=== PATIENT | female | born 1955 | race Caucasian/White ===

== ENCOUNTER → 2016-10-04 | Outpatient (CLI) | payer BC ==
[~2016-10-04] MED LIST: ATOR10TA60 PO; GADOBUTROL 10 MMOL/10 ML VIAL IV ONE; HYDR12.58 PO
--- NOTE | 2016-10-04 16:34 | KCIC ---
MRI of the lumbar spine without and with contrast 10/04/2016 CLINICAL HISTORY: Low back pain which radiates down the left leg. History of lumbar spinal canal stenosis. TECHNIQUE: Unenhanced T1-weighted and T2-weighted sagittal and axial and inversion recovery sagittal images of the lumbar spine were obtained. After the intravenous administration of 9 cc of Gadavist, enhanced T1-weighted sagittal and axial images of the lumbar spine were obtained. FINDINGS: Comparison is made to radiographs of the lumbar spine dated 07/12/2011. Minimal S-shaped curvature of the thoracolumbar spine is seen. Degenerative signal changes are seen involving all of the disks of the lumbar spine. Degenerative signal changes are seen within the marrow surrounding these discs. The conus medullaris is normal in morphology, position, and signal characteristics. No area of abnormal contrast enhancement is seen. At the L1-2 disc space there is a mild generalized disc bulge. Degenerative changes are seen involving the facet joints bilaterally. There is mild ligamentum flavum hypertrophy bilaterally. There is prominence of the posterior epidural fat. These findings when combined result in mild central spinal canal stenosis. No neural foraminal stenosis is seen. At the L2-3 disc space there is a moderate generalized disc bulge. Superimposed on the disc bulge is a central/left paracentral focal disc protrusion. This measures 4 mm in AP diameter. Degenerative changes are seen involving the facet joints bilaterally. There is moderate ligamentum flavum hypertrophy bilaterally. These findings when combined result in moderate to severe left greater than right central spinal canal stenosis. No neural foraminal stenosis is seen. At the L3-4 disc space there is a moderate generalized disc bulge. Degenerative changes are seen involving the facet joints bilaterally. There is moderate ligamentum flavum hypertrophy bilaterally. These findings when combined result in severe central spinal canal stenosis. Mild to moderate bilateral neural foraminal stenosis is seen. At the L4-5 disc space there is a mild generalized disc bulge. Degenerative changes are seen involving the facet joints bilaterally. There is moderate ligamentum flava hypertrophy bilaterally. These findings when combined result in mild to moderate central spinal canal stenosis. No neural foraminal stenosis is seen. At the L5-S1 disc space there is a minimal generalized disc bulge. Degenerative changes are seen involving the facet joints bilaterally. These findings when combined do not result in significant central spinal canal or neural foraminal stenosis. IMPRESSION: The changes of degenerative disc disease are seen involving the lumbar spine. These findings result in mild central spinal canal stenosis at L1-2, moderate to severe left greater than right central spinal canal stenosis at L2-3, severe central spinal canal stenosis at L3-4 and mild to moderate central spinal canal stenosis at L4-5. Mild to moderate bilateral neural foraminal stenosis is seen at L3-4. Electronically signed by: Prateek Garcia MD (10/04/2016 4:31 PM)
== END | disposition home or self-care (01) ==
LOC: KCIC MRI 14:41
PROVIDERS: ATTEND Family Medicine
DX: M51.36 Other intervertebral disc degeneration, lumbar region (principal); M48.06 Spinal stenosis, lumbar region
CPT/HCPCS: 72158; A9585

== ENCOUNTER → 2016-10-26 | Outpatient (CLI) | payer BC ==
[~2016-10-26] MED LIST changes: +BUPIVACAINE MPF 0.25% 10 ML VIAL. ONE; +CHOL10003 PO; +CYCL10TA2 PO; -GADOBUTROL 10 MMOL/10 ML VIAL IV ONE; +methylPREDNISolone ACETATE 40 MG/ML VIAL. ONE; +methylPREDNISolone ACETATE 80 MG/ML VIAL. ONE
== END | disposition home or self-care (01) ==
LOC: PNCL 12:12
PROVIDERS: ATTEND Anesthesiology
DX: M47.816 Spondylosis without myelopathy or radiculopathy, lumbar region (principal); M48.06 Spinal stenosis, lumbar region; Z88.0 Allergy status to penicillin
CPT/HCPCS: 64493; 64494; J1040; J3490; J1030

== ENCOUNTER → 2016-11-09 | Outpatient (CLI) | payer BC ==
[~2016-11-09] MED LIST changes: -BUPIVACAINE MPF 0.25% 10 ML VIAL. ONE; +IOHEXOL 180 MG/ML 10 ML VIAL. ONE
--- NOTE | 2016-11-10 01:06 | PAIN ---
DATE OF SERVICE: 11/09/2016 DIAGNOSES: Lumbar spondylosis with lumbar radiculopathy and lumbar spinal stenosis. HISTORY OF PRESENT ILLNESS: The patient is a 61-year-old female who returns for followup status post left-sided lumbar facet injections at L5-S1 and L4-L5. The patient reports no significant improvement in the pain after the injections. The patient had [address] injections [address] [facility] prior to this and reports very good improvement in pain after the first injection, but not as much after the second. Discussed the pain further. The patient reports it is radiating now into her lower leg, mostly in the lateral anterior aspect of the thigh and into the medial aspect of the lower leg as well as into the side of the lower leg. Rates it as an 8 on a scale of 10 at all times. The patient reports it is aching, sharp, tingling, cramping, on and off in intensity but always present. The patient reports no new motor or sensory deficits, but it has been waking her from sleep at night. She sleeps about 4 hours, she has to reposition, take pain medication, get out of bed and change positions to get the pain reduced. The patient reports no new motor or sensory deficits, no new bowel or bladder incontinence or other complaints. PHYSICAL EXAMINATION: VITAL SIGNS: Today, the patient's blood pressure is 152/82, pulse 94, respirations are 18, temperature 97.5 degrees Fahrenheit, height is 5 feet 3 inches, weight is 200 pounds. GENERAL: The patient is awake, alert, oriented, appropriate, very pleasant demeanor. HEENT: Exam shows normocephalic and atraumatic. Extraocular movements are intact, symmetrical. Oral cavity shows mucous membranes are moist and pink. Dentition is intact. NECK: Shows anterior throat supple. CHEST: Shows normal on inspection. Breath sounds are clear to auscultation bilaterally. HEART: Shows S1 and S2 clear. No murmurs auscultated. ABDOMEN: Obese, soft, nontender, nondistended. No palpable organomegaly noted. No rebound or guarding demonstrated. BACK: Shows spine grossly in the midline. Lumbar paraspinous muscle shows symmetrical; with palpation, it shows moderate tenderness throughout the upper, middle and lower distribution only diffusely and only to a moderate extent. No radiation. The patient has good rotational motion of the lumbar spine, both laterally as well as extension and flexion. EXTREMITIES: Lower extremities show deep tendon reflexes at 1+/4 in the patellar and tendo calcaneus tendons are equal. Motor exam is strong with dorsiflexion, extension, quadriceps and hamstring flexion and 5/5 at the ankles and 4/5 with quadriceps and hamstring flexion, but equal and symmetrical. Peripheral pulses are 1+ in the posterior tibial. Options were discussed with the patient. The patient's old chart was reviewed as her current medication regimen and updated. Current review of systems updated today as well. We will proceed with a lumbar epidural steroid injection, today is the third total in her series, with fluoroscopic guidance. Risks were again discussed including but not limited to bleeding, infection, possibility of epidural hematoma, subsequent neurologic compromise, dural puncture, headaches, spinal cord and/or nerve damage, side effects of steroid medication and poor results regarding pain control. The patient understands and wishes to proceed. The patient will return to the clinic in approximately 2 weeks for followup. She was counseled as to return appointment, activity level and side effects to be aware of. DIAGNOSES: Lumbar radiculopathy with spinal stenosis and lumbar spondylosis. PROCEDURES: Lumbar epidural steroid injection in translaminar approach at the L4-L5 level using C-arm fluoroscopic guidance under sterile prep and drape using local anesthetic. MEDICATIONS INJECTED: Total of 120 mg of Depo-Medrol plus a total of 10 mL of preservative-free normal saline and 2 mL of Isovue for contrast. CONDITION AT DISCHARGE: Stable. The patient tolerated the procedure well, had no complications. REN ONEILL MD DR: LILO/jennifer JOB#: [id number] / [id number]
== END | disposition home or self-care (01) ==
LOC: PNCL 13:27
PROVIDERS: ATTEND Anesthesiology
DX: M47.26 Other spondylosis with radiculopathy, lumbar region (principal); M48.06 Spinal stenosis, lumbar region; Z88.0 Allergy status to penicillin
CPT/HCPCS: 62323; J1030; J1040

== ENCOUNTER → 2016-11-16 | Outpatient (CLI) | payer BC ==
[~2016-11-16] MED LIST changes: -IOHEXOL 180 MG/ML 10 ML VIAL. ONE; -methylPREDNISolone ACETATE 40 MG/ML VIAL. ONE; -methylPREDNISolone ACETATE 80 MG/ML VIAL. ONE
--- NOTE | 2016-11-16 08:21 | RAD ---
Indication chronic pain. AP and frog leg views of the left hip were obtained. Bony mineralization appears normal. An acute finding is not seen. Significant degenerative changes are not apparent on plain films. IMPRESSION: No acute or significant finding seen involving the left hip on plain films
== END | disposition home or self-care (01) ==
LOC: RAD 07:30
PROVIDERS: ATTEND Anesthesiology
DX: M25.552 Pain in left hip (principal)
CPT/HCPCS: 73502

== ENCOUNTER → 2016-11-21 | Outpatient (CLI) | payer BC ==
--- NOTE | 2016-11-21 17:17 | PAIN ---
DATE OF SERVICE: 11/21/2016 DIAGNOSES: Lumbar spondylosis with lumbar radiculopathy, lumbar spinal stenosis. HISTORY OF PRESENT ILLNESS: The patient is a 61-year-old female who returns for followup status post lumbar epidural steroid injection. Also, lumbar facet injections, facet injections are not tremendously helpful, but the last lumbar epidural steroid injection she had on 11/19/2016 did very well. The patient reports she is 100% pain free at this time, she has some left hip pain as well and we had ____ with no acute findings. The patient was informed this as well. The patient reports the pain is completely gone, her low back and her hips and legs. She still feels unstable on her legs as they are somewhat weak when walking using a walker, but the patient reports her pain is 0 in all categories, at least average ____. Pain that was originally shooting and aching, burning, stabbing and is now gone The patient reports it took about a day and a half after, last injection, but the pain is completely resolved. She is 100% better sleep well at night, increased her activity with greater ease and comfort. I again except some weakness sensation her leg. She has had no motor loss. The patient reports no new motor or sensory deficits, no new bowel or bladder incontinence or other complaints. PHYSICAL EXAMINATION: VITAL SIGNS: The patient's blood pressure is 157/73, pulse 103, respirations 18, temperature is 98.0 degrees Fahrenheit. Height is 5 feet 3 inches, weight is 210 pounds. GENERAL: The patient is awake, alert, oriented, appropriate, very pleasant demeanor. HEENT: Head shows normocephalic, atraumatic. Extraocular movements intact, symmetrical. Oral cavity: Mucous membranes moist and pink. Dentition is intact. NECK: Shows anterior throat supple without palpable lymphadenopathy noted. Swallow reflex is symmetrical. CHEST: Shows normal on inspection. Breath sounds clear to auscultation bilaterally. HEART: Shows S1 and S2 clear. ABDOMEN: Soft, nontender, nondistended. No palpable organomegaly is noted. No rebound or guarding demonstrated. BACK: Shows spine grossly midline. Slight exaggeration of thoracic kyphosis and mild flattening of lumbar lordotic curvature. Lumbar paraspinous musculature is symmetrical on inspection with palpation shows only very minimal tenderness with deep palpation in the lower lumbar distribution without radiation. The patient has good rotational motion both laterally as well as extension and flexion without difficulty. EXTREMITIES: Lower extremities showed deep tendon reflexes 1+ in the patellar and tendo calcaneus tendons are equal. Motor exam is approximately 4 on a scale of 5 with quadriceps and hamstring flexion equal and ankle dorsiflexion, extension at 5/5 and stronger and equal bilaterally. Options were discussed with the patient and the patient's old chart was reviewed as her current medication regimen updated. Current review of systems updated today as well. We will hold on any further injections as she did very well with increased activity as tolerated. I encouraged her to try and strengthen her legs as well as her back before getting rid of her walker. She does feel more sleep with this, but eventually may be without this as well. We weaned to a cane as tolerated. The patient understands and agrees and will follow up on as needed basis at this time. REN ONEILL MD DR: LILO/jennifer JOB#: [id number] / [id number]
== END | disposition home or self-care (01) ==
LOC: PNCL 12:45
PROVIDERS: ATTEND Anesthesiology
DX: M47.896 Other spondylosis, lumbar region (principal); M54.16 Radiculopathy, lumbar region; M48.06 Spinal stenosis, lumbar region
CPT/HCPCS: 99212

== ENCOUNTER 2016-12-21 14:52 | Emergency (ER) | payer BC ==
[~2016-12-21] VITALS: Ht 160 cm; Wt 93.9 kg
--- NOTE | 2016-12-21 15:02 | PHYS DOC ---
Adult General Chief Complaint Chief Complaint: LOWER EXTREMITY SWELLING HPI HPI Patient is a 61 year old female presenting to the emergency department for evaluation of bilateral lower extremity swelling that started approximately 10- 14 days ago and over the past 2 days she says it has progressed and worsened. She says her left knee is always swollen but it is more swollen today and her lower extremity is swollen as well. Patient says that she feels mildly short of breath on exertion but she denies any chest pain dizziness unilateral weakness numbness or tingling. Her left leg is slightly more red than the right however it is not warm and she denies any fevers chills or other systemic symptoms. She takes hydrochlorothiazide and says that she spoke to her primary care provider and the prescribed her [place] for the pain and she has not been up moving around and she says she has too much low back pain which is chronic and not new or worse. She denies any trauma or overuse. Review of Systems Review of Systems Constitutional: Denies fever or chills [] Eyes: Denies change in visual acuity, redness, or eye pain [] HENT: Denies nasal congestion or sore throat [] Respiratory: Denies cough. + shortness of breath [] Cardiovascular: No additional information not addressed in HPI [] GI: Denies abdominal pain, nausea, vomiting, bloody stools or diarrhea [] : Denies dysuria or hematuria [] Musculoskeletal: Denies back pain or joint pain [] Integument: Denies rash or skin lesions [] Neurologic: Denies headache, focal weakness or sensory changes [] Current Medications Current Medications Current Medications Medications (Trade) Dose Ordered Sig/[facility] Start Time Stop Time Status Last Admin Dose Admin Furosemide (Lasix) 40 mg 1X ONCE 12/21/16 16:30 12/21/16 16:31 DC 12/21/16 16:40 40 MG Morphine Sulfate 5 mg 1X ONCE 12/21/16 16:30 12/21/16 16:31 DC 12/21/16 16:41 5 MG Allergies Allergies Allergies Coded Allergies Type Severity Reaction Last Updated Verified Penicillins Allergy Intermediate 10/04/16 Yes Physical Exam Physical Exam Constitutional: Well developed, well nourished, no acute distress, non-toxic appearance. [] HENT: Normocephalic, atraumatic, bilateral external ears normal, oropharynx moist, no oral exudates, nose normal. [] Eyes: PERRLA, EOMI, conjunctiva normal, no discharge. [] Neck: Normal range of motion, no tenderness, supple, no stridor. [] Cardiovascular:Heart rate regular rhythm, no murmur [] Lungs & Thorax: Bilateral breath sounds clear to auscultation [] Abdomen: Bowel sounds normal, soft, no tenderness, no masses, no pulsatile masses. [] Skin: Warm, dry, no erythema, no rash. [] Back: No tenderness, no CVA tenderness. [] Extremities: No tenderness, no cyanosis, no clubbing, ROM intact, 1-2+ edema on R and 2-3+ edema on L. left knee is swollen but there is no redness and she can move the joint without significant pain. Neurologic: Alert and oriented X 3, normal motor function, normal sensory function, no focal deficits noted. [] Current Patient Data Vital Signs Vital Signs Date Time Temp Pulse Resp B/P (MAP) Pulse Ox O2 Delivery O2 Flow Rate FiO2 12/21/16 15:12 98.4 109 24 175/74 (107) 93 Room Air 98.4 Lab Values Laboratory Tests Test 12/21/16 15:15 12/21/16 16:30 White Blood Count 8.3 x10^3/uL (4.0-11.0) Red Blood Count 4.12 x10^6/uL (3.50-5.40) Hemoglobin 12.7 g/dL (12.0-15.5) Hematocrit 37.5 % (36.0-47.0) Mean Corpuscular Volume 91 fL (79-100) Mean Corpuscular Hemoglobin 31 pg (25-35) Mean Corpuscular Hemoglobin Concent 34 g/dL (31-37) Red Cell Distribution Width 13.0 % (11.5-14.5) Platelet Count 236 x10^3/uL (140-400) Neutrophils (%) (Auto) 68 % (31-73) Lymphocytes (%) (Auto) 23 % (24-48) L Monocytes (%) (Auto) 7 % (0-9) Eosinophils (%) (Auto) 1 % (0-3) Basophils (%) (Auto) 1 % (0-3) Neutrophils # (Auto) 5.6 x10^3uL (1.8-7.7) Lymphocytes # (Auto) 1.9 x10^3/uL (1.0-4.8) Monocytes # (Auto) 0.6 x10^3/uL (0.0-1.1) Eosinophils # (Auto) 0.1 x10^3/uL (0.0-0.7) Basophils # (Auto) 0.1 x10^3/uL (0.0-0.2) Prothrombin Time 13.6 SEC (11.7-14.0) Prothrombin Time INR 1.1 (0.8-1.1) PTT 30 SEC (24-38) Sodium Level 140 mmol/L (136-145) Potassium Level 3.5 mmol/L (3.5-5.1) Chloride Level 101 mmol/L (98-107) Carbon Dioxide Level 30 mmol/L (21-32) Anion Gap 9 (6-14) Blood Urea Nitrogen 20 mg/dL (7-20) Creatinine 0.7 mg/dL (0.6-1.0) Estimated GFR (Cockcroft-Gault) 85.4 BUN/Creatinine Ratio 29 (6-20) H Glucose Level 127 mg/dL (70-99) H Calcium Level 9.5 mg/dL (8.5-10.1) Magnesium Level 2.0 mg/dL (1.8-2.4) Total Bilirubin 0.4 mg/dL (0.2-1.0) Aspartate Amino Transferase (AST) 38 U/L (15-37) H Alanine Aminotransferase (ALT) 50 U/L (14-59) Alkaline Phosphatase 78 U/L (46-116) Creatine Kinase 474 U/L (26-192) H Troponin I Quantitative < 0.017 ng/mL (0.000-0.055) YY-Lzb-S-Type Natriuretic Peptide 55 pg/mL (0-124) Total Protein 7.1 g/dL (6.4-8.2) Albumin 3.7 g/dL (3.4-5.0) Albumin/Globulin Ratio 1.1 (1.0-1.7) Urine Color Yellow Urine Clarity Clear Urine pH 5.0 Urine Specific [place] 1.015 Urine Protein Negative mg/dL (NEG-TRACE) Urine Glucose (UA) Negative mg/dL (NEG) Urine Ketones (Stick) Negative mg/dL (NEG) Urine Blood Negative (NEG) Urine Nitrite Negative (NEG) Urine Bilirubin Negative (NEG) Urine Urobilinogen Dipstick 0.2 mg/dL (0.2 mg/dL) Urine Leukocyte Esterase Negative (NEG) Urine RBC 0 /HPF (0-2) Urine WBC Occ /HPF (0-4) Urine Squamous Epithelial Cells Occ /LPF Urine Bacteria 0 /HPF (0-FEW) Laboratory Tests 12/21/16 15:15 Laboratory Tests 12/21/16 15:15 EKG EKG Sinus tachycardia at 107 beats per minutes with right axis deviation no obvious ST elevation or depression with normal t waves and one PVC noted Radiology/Procedures Radiology/Procedures EXAM: CHEST 1 VIEW History: Shortness of breath COMPARISON: None available. TECHNIQUE: Single portable radiograph of the chest FINDINGS: The cardiac silhouette is unremarkable. The lungs are clear bilaterally. The costophrenic sulci are clear and well demarcated. IMPRESSION: No radiographic evidence of an acute cardiopulmonary process. DICTATED and SIGNED BY: JADE WAY MD DATE: 12/21/16 1526 Examination: Ultrasound left lower extremity venous duplex History: History of left leg pain, swelling Comparison: None available Technique: Grayscale, color Doppler 2-D, spectral waveform analysis of the left lower extremity venous system are performed. Findings: The visualized common femoral vein, superficial femoral vein, popliteal vein, demonstrate normal compression and augmentation of flow. The visualized calf veins are patent. Impression: No evidence of deep venous thrombosis left lower extremity venous system. DICTATED and SIGNED BY: JADE WAY MD DATE: 12/21/16 1643 Course & Med Decision Making Course & Med Decision Making Patient with nonspecific lower extremity edema likely dependent edema as she has 2+ dorsalis pedis pulse bilaterally. We will check for DVT renal failure liver failure congestive heart failure and then reassess. Workup is completely negative for acute process including DVT renal failure and liver failure congestive heart failure. She has normal pulses so I doubt this is an arterial issue either. I spoke to Dr. Mendoza who is on-call for Dr. Jasso and she recommended outpatient treatment with leg elevation and compression stockings and a 5 day course of Lasix while awaiting to see Dr. Jasso. Patient does appear well with normal vital signs other than her baseline tachycardia which is present on all prior charts. Patient aware and agreeable with plan for discharge and verbalized understanding of the need for short-term follow-up in the strict ED return precautions discussed and clear worsening pain fevers shortness of breath or other general concerns. Dragon Disclaimer Dragon Disclaimer This electronic medical record was generated, in whole or in part, using a voice recognition dictation system. Departure Departure Impression: Primary Impression: Peripheral edema Disposition: HOME, SELF-CARE Condition: STABLE Referrals: JARET JASSO MD (PCP) Patient Instructions: Peripheral Edema Additional Instructions: MAKE SURE TO KEEP YOUR LEGS ELEVATED OFTEN POSSIBLE. TAKE YOUR MEDICATIONS PRESCRIBED IN ADDITION TO THE LASIX. THANK YOU! Scripts Furosemide (LASIX) 40 Mg Tablet 1 TAB PO DAILY, #5 TAB 0 Refills Prov: CARISA CLARK DO 12/21/16 CARISA CLARK DO Dec 21, 2016 15:02
[2016-12-21 15:25] LABS: BASO # 0.1 x10^3/uL (0.0-0.2); BASO % 1 % (0-3); EOS % 1 % (0-3); HEMATOCRIT 37.5 % (36.0-47.0); HEMOGLOBIN 12.7 g/dL (12.0-15.5); LYMPH # 1.9 x10^3/uL (1.0-4.8); LYMPH % 23 % (24-48); MEAN CORPUSCULAR HEMOGLOBIN 31 pg (25-35); MEAN CORPUSCULAR HGB CONC 34 g/dL (31-37); MEAN CORPUSCULAR VOLUME 91 fL (79-100); MONO % 7 % (0-9); NEUT % 68 % (31-73); PLATELET COUNT 236 x10^3/uL (140-400); RED BLOOD COUNT 4.12 x10^6/uL (3.50-5.40); WHITE BLOOD COUNT 8.3 x10^3/uL (4.0-11.0)
--- NOTE | 2016-12-21 15:29 | RAD ---
EXAM: CHEST 1 VIEW History: Shortness of breath COMPARISON: None available. TECHNIQUE: Single portable radiograph of the chest FINDINGS: The cardiac silhouette is unremarkable. The lungs are clear bilaterally. The costophrenic sulci are clear and well demarcated. IMPRESSION: No radiographic evidence of an acute cardiopulmonary process.
[2016-12-21 15:35] LABS: INR 1.1 (0.8-1.1); PROTHROMBIN TIME PATIENT 13.6 SEC (11.7-14.0)
[2016-12-21 15:37] LABS: CALCIUM 9.5 mg/dL (8.5-10.1); CREATININE 0.7 mg/dL (0.6-1.0); GFR 85.4; POTASSIUM 3.5 mmol/L (3.5-5.1)
[2016-12-21 15:43] LABS: ALBUMIN 3.7 g/dL (3.4-5.0); ALBUMIN/GLOBULIN RATIO 1.1 (1.0-1.7); TOTAL BILIRUBIN 0.4 mg/dL (0.2-1.0); TOTAL PROTEIN 7.1 g/dL (6.4-8.2)
[2016-12-21] MEDS ORDERED: ATOR20TA58 PO (15:53)
[2016-12-21] MEDS ORDERED: DICL75TA PO (15:59)
[2016-12-21] MEDS ORDERED: HYDR-2762 PO (16:00)
[2016-12-21] MEDS ORDERED: FUROSEMIDE 40 MG/4 ML VIAL. IVP ONE (16:30)
[2016-12-21] MEDS ORDERED: MORPHINE SULFATE 10 MG/ML VIAL. IV ONE (16:30)
[2016-12-21 16:40] LABS: BILIRUBIN,URINE NEGATIVE (NEG); GLUCOSE,URINE NEGATIVE (NEG); NITRITE,URINE NEGATIVE (NEG); PROTEIN,URINE NEGATIVE (NEG-TRACE); UROBILINOGEN,URINE 0.2 mg/dL (0.2 mg/dL)
--- NOTE | 2016-12-21 16:46 | RAD ---
Examination: Ultrasound left lower extremity venous duplex History: History of left leg pain, swelling Comparison: None available Technique: Grayscale, color Doppler 2-D, spectral waveform analysis of the left lower extremity venous system are performed. Findings: The visualized common femoral vein, superficial femoral vein, popliteal vein, demonstrate normal compression and augmentation of flow. The visualized calf veins are patent. Impression: No evidence of deep venous thrombosis left lower extremity venous system.
[2016-12-21 16:53] LABS: BACTERIA,URINE 0 /HPF (0-FEW); RBC,URINE 0 /HPF (0-2); SQUAMOUS EPITHELIAL CELL,UR OCC /LPF; WBC,URINE OCC /HPF (0-4)
[2016-12-21] MEDS ORDERED: FURO-68 PO (17:23)
[2016-12-21 17:45] VITALS: BP 176/74
--- NOTE | 2016-12-22 06:46 | EKG ---
[facility] [address] [place] [address] Test Date: 2016-12-21 Test Time: 15:24:32 Pat Name: NIVIA RUIZ Department: Room: Gender: F [employer]: : [id number] Requested By: CARISA CLARK Order Number: [id number] Reading MD: Sunny Holman Measurements Intervals [place] Rate: 107 P: 43 ME: 118 QRS: 142 QRSD: 86 T: 147 QT: 342 QTc: 462 Interpretive Statements SUSPECT SINUS TACHYCARDIA BASELINE ARTIFACT PVC CONSIDER REPEAT EKG Electronically Signed On 12-25-2016 11:08:51 CDT by Sunny Holman
== END 2016-12-21 17:46 | disposition home or self-care (01) ==
LOC: ER 14:52
DX: R60.0 Localized edema (principal); R06.02 Shortness of breath; G89.29 Other chronic pain; M54.5 Low back pain; Z88.0 Allergy status to penicillin
CPT/HCPCS: 36415; 71010; 80053; 81001; 82550; 83735; 83880; 84484; 85025; 85610; 85730; 93005; 93971; 96374; 96375; 99285; J1940; J2270

== ENCOUNTER 2017-01-15 07:20 | Inpatient (IN) | payer BC ==
--- NOTE | 2017-01-12 15:18 | HP ---
ADMIT DATE: 01/15/2017 This is Roger Montiel RN, dictating for Dr. Jah Hernandez. DATE OF SCHEDULED SURGERY: 01/15/2017 HISTORY OF PRESENT ILLNESS: The patient is a pleasant 61-year-old woman who is having difficulty with low back pain, and pain which radiates into her left leg. She stated she started having problems in 2006. She relates the pain has slowly worsened since then; about 3 years ago, became more severe. She stated last year she developed severe pain with standing in her left leg. She rates her pain at 5-6/10. She takes [place], diclofenac, and Flexeril. She has had epidural steroid injections, which she stated have helped during the past, but recently stopped working effectively. She feels as though there is weakness in her left leg. Recently she has been using a walker. When she leaves home, she uses a wheelchair. PAST MEDICAL HISTORY: Arthritis and hypertension. PAST SURGICAL HISTORY: Hysterectomy, ovarian cyst, hernia. FAMILY HISTORY: Hypertension. SOCIAL HISTORY: Works in the home. . Quit smoking 2 years ago. Does not drink alcohol. ALLERGIES: PENICILLIN AND LATEX. CURRENT MEDICATIONS: Ros[place], diclofenac, Flexeril, atorvastatin, hydrochlorothiazide, potassium, furosemide, vitamin D3. REVIEW OF SYSTEMS: A 12-point review of systems was obtained and is noncontributory except for that mentioned above. NEUROSURGERY EXAMINATION: GENERAL APPEARANCE: Alert, pleasant, in no acute distress. HEENT: Normocephalic, atraumatic. SKIN: Warm and dry. MUSCULOSKELETAL: Lumbar paraspinal muscle bulk is normal. Restricted range of motion of the lumbar spine. [id number] tenderness of lower lumbar spine with palpation. Normal range of motion of the lower extremities bilaterally. EXTREMITIES: No clubbing, cyanosis or edema. NEUROLOGIC: Alert and oriented x 3. Normal recent and remote memory. Strength 5/5 in bilateral lower extremities. Sensory was intact to light touch in bilateral lower extremities, except for decrease involving the anterior lateral left leg. Reflexes were trace and symmetric in the lower extremities bilaterally. Negative straight leg raising bilaterally. She uses a wheelchair. She does not feel strong enough to climb up onto the exam table, not trusting her left leg. IMAGING: Reviewed. I reviewed a lumbar MRI scan. On that study, there is severe stenosis present at L3-L4. There is a moderately severe stenosis at L2-L3. There is mild stenosis at L4-L5 and L1-L2. ASSESSMENT: Spinal stenosis, lumbar region. PLAN: She has stenosis involving principally L2-L3 and L3-L4. The problem is very severe at L3-L4. I recommended a left direct laminectomy at L2-L3 and L3-L4 for her lumbar spinal stenosis. I spoke to her about our surgery and the risks. She understands. She would like for me to proceed. We will make the arrangements. JAH HERNANDEZ MD DR: RL/jennifer JOB#: [id number] / [id number]
[~2017-01-15] VITALS: Ht 170.2 cm; Wt 93.9 kg
[2017-01-15] VITALS (9 sets, daily range): BP systolic 110–146; BP diastolic 54–67
[~2017-01-15 07:20] MED LIST changes: +ATOR20TA58 PO; +BACITRACIN 50,000 UNIT in IV NORMAL SALINE 1000ML BAG 1,000 ML IRR ONE; +BUPIVAC MPF-EPI 0.5%-1:200000 10 ML VIAL. ONE; +DICL75TA PO; +FURO-68 PO; +GELATIN SPONGE SIZE 100. ONE; +HYDR-2762 PO; +HYDROmorphone 2 MG/ML VIAL IV PRN; +IV RINGERS,LACTATED 1000ML 1,000 ML IV SCH; +KETOROLAC 60 MG/2 ML INJ FOR OR. ONE; +LIDOCAINE 1% PF 2 ML VIAL. ID PRN; +MORPHINE SULFATE 2 MG/ML DISP.SYRIN. IV PRN; +ONDANSETRON PF 4 MG/2 ML VIAL. IV PRN; +PROCHLORPERAZINE 10 MG/2 ML VIAL. IV PRN; +THROMBIN TOPICAL 20,000 UNIT SPRAY.SYRN KIT TP ONE; +fentaNYL PF VIAL 100 MCG/2 ML VIAL IV PRN
[2017-01-15] MEDS ORDERED: VANCOMYCIN 1GM IVPB FOR OMNI 250 ML IV PRN (08:00)
[2017-01-15] MEDS ORDERED: fentaNYL PF VIAL 100 MCG/2 ML VIAL ONE (08:12)
[2017-01-15] MEDS ORDERED: ONDANSETRON PF 4 MG/2 ML VIAL. ONE (08:12)
[2017-01-15] MEDS ORDERED: PROPOFOL 20 ML IV ONE (08:12)
[2017-01-15] MEDS ORDERED: LIDOCAINE 2% PF Vial for OR 5 ML VIAL. ONE (08:12)
[2017-01-15] MEDS ORDERED: DEXAMETHASONE SOD PHOS 20 MG/5 ML VIAL. ONE (08:12)
[2017-01-15] MEDS ORDERED: ePHEDrine PF IN SALINE 50 MG/5 ML DISP.SYRIN IV ONE (08:13)
[2017-01-15] MEDS ORDERED: PROPOFOL 50 ML IV ONE ×2 (08:13→09:49)
[2017-01-15] MEDS ORDERED: REMIFENTANIL 2 MG VIAL. IV ONE (08:13)
[2017-01-15] MEDS ORDERED: PHENYLEPHRINE in 0.9% NACL PF 1 MG/10 ML DISP.SYRIN. IV ONE (08:13)
[2017-01-15] MEDS ORDERED: ROCURONIUM 100 MG/10 ML VIAL. ONE (08:20)
[2017-01-15] MEDS ORDERED: GLYCOPYRROLATE 1 MG/5 ML VIAL. ONE (09:30)
[2017-01-15] MEDS ORDERED: NEOSTIGMINE 10 MG/10 ML VIAL. ONE (09:30)
[2017-01-15] MEDS ORDERED: DESFLURANE > 120 MINUTES IH ONE (10:40)
--- NOTE | 2017-01-15 12:11 | OP ---
DATE OF SURGERY: 01/15/2017 PREOPERATIVE DIAGNOSES: Lumbar spinal stenosis, L2-L3, L3-L4 with left lumbar radiculopathy. POSTOPERATIVE DIAGNOSIS: Lumbar spinal stenosis, L2-L3, L3-L4 with left lumbar radiculopathy. OPERATION PERFORMED: Left direct laminectomy, L2-L3, L3-L4. The operation was done with EMG monitoring, fluoroscopy, microscopic dissection. SURGEON: Jah Hernandez M.D. BUFFING WHEEL INSPECTOR: FLAKO Amaro assisted with the surgery. She assisted with the exposure, the decompression as well as closure. OPERATIVE INDICATIONS: The patient is a very pleasant 61-year-old who developed intractable back and left leg pain, which failed conservative measures. Her pain became very severe. On imaging studies, she was found to have the above-mentioned findings. I recommended lumbar microsurgery. I spoke with her about the surgery and the risks, the technique of the operation, she understood and she wished to go ahead. DESCRIPTION OF PROCEDURE: Following general endotracheal anesthesia, the patient was positioned prone on the Viraj frame. Her lumbar region was prepped and draped in the standard fashion. STEFFEN hose and AV impulse boots were applied for deep venous thrombosis prophylaxis. The microscope was draped. Fluoroscopy was draped and brought into field. Monitoring was established. Vancomycin 1 gram was given preoperatively. The patient did have PCN and latex allergies. Using fluoroscopic guidance, an incision was made extending from L2 to L4, dissected down through the skin and subcutaneous tissue and reflected the paraspinal muscles to the left and placed a [place] micro disc retractor, brought in the microscope and using the high speed air drill, beginning at L3-L4 I burred down a generous hemilaminotomy and then tilted the patient away and drilled across the midline with a high speed air drill. There was significant adipose tissue and the longest micro lumbar retractor was used, but I was able to obtain excellent exposure and drilling across the midline I then visualized markedly degenerated ligamentum flavum, which I then freed up from the surrounding tissues and peeled from medial to laterally and also trimmed some from the contralateral side. I worked laterally and I did also perform partial foraminotomy and fully decompressed the entire region, and the dura moved out laterally. I palpated the disc. It was bulging slightly, but very, very firm and no discectomy was warranted. I had an excellent decompression at this level. I then placed Gelfoam around the edge of the exposure where I irrigated copiously, moved up to L2-L3. Again, using fluoroscopic images, I drilled down a generous hemilaminotomy, again tilted the table away and drilled across the midline and again removed the very thickened ligamentum flavum from medial to lateral, and performed a partial foraminotomy. The stenosis at L2-L3 was not as severe as at L3-L4, but was significant. At this point, then the dura had moved back nicely. I had excellent hemostasis. I irrigated copiously. I was able to close the incision. I removed the retractor, obtained hemostasis in the muscle, irrigated again and closed the fascia with absorbable suture, again after assuring myself of excellent hemostasis, followed by the subcutaneous tissue, which was closed in layers followed by the skin with a 4-0 subcuticular stitch. The operation went very well and the patient was awakened uneventfully. I was quite pleased with the surgery. JAH HERNANDEZ MD DR: RL/jennifer JOB#: [id number] / [id number] JEANETTE
[2017-01-15] MEDS ORDERED: ZOLPIDEM 5 MG TABLET. PO PRN (12:15)
[2017-01-15] MEDS ORDERED: CALCIUM CARBONATE 500 MG TAB.CHEW PO PRN (12:15)
[2017-01-15] MEDS ORDERED: diphenhydrAMINE 50 MG/ML VIAL IV PRN (12:15)
[2017-01-15] MEDS ORDERED: ACETAMINOPHEN 325 MG TABLET. PO PRN (12:15)
[2017-01-15] MEDS ORDERED: MAGNESIUM HYDROXIDE 2,400 MG/30 ML ORAL.SUSP. PO PRN (12:15)
[2017-01-15] MEDS ORDERED: MAG HYDROX/ALUMINUM HYD/SIMETH 30 ML ORAL.SUSP PO PRN (12:15)
[2017-01-15] MEDS ORDERED: HYDROcodone/APAP 7.5/325MG 1 TAB TABLET PO PRN (12:15)
[2017-01-15] MEDS ORDERED: 0.9 % SODIUM CHLORIDE 10 ML DISP.SYRIN. IV PRN (12:15)
[2017-01-15] MEDS ORDERED: fentaNYL PF VIAL 100 MCG/2 ML VIAL IV PRN ×2 (12:15)
[2017-01-15] MEDS ORDERED: diphenhydrAMINE HCL 25 MG CAPSULE PO PRN (12:15)
[2017-01-15] MEDS: fentaNYL PF VIAL 100 MCG/2 ML VIAL IV PRN ×2 (12:19→12:27)
[2017-01-15] MEDS ORDERED: ALBUMIN HUMAN 5% 250 ML IV ONE (12:38)
[2017-01-15] MEDS ORDERED: ALBUMIN HUMAN 5% 500 ML IV ONE (12:45)
[2017-01-15] MEDS ORDERED: POTASSIUM CL 20MEQ D5-0.45NACL 1,000 ML IV SCH (14:00)
[2017-01-15] MEDS ORDERED: METHOCARBAMOL 750 MG TABLET PO SCH (14:00)
[2017-01-15] MEDS: HYDROcodone/APAP 7.5/325MG 1 TAB TABLET PO PRN (17:46)
[2017-01-15] MEDS: DICLOFENAC SODIUM 25 MG TABLET.DR PO SCH (21:51)
[2017-01-15] MEDS: DOCUSATE SODIUM 100 MG CAPSULE. PO SCH (21:51)
[2017-01-15] MEDS: CYCLOBENZAPRINE 10 MG TABLET. PO SCH (21:51)
[2017-01-15] MEDS: ATORVASTATIN CALCIUM 20 MG TABLET PO SCH (21:52)
[2017-01-16 02:31] VITALS: BP 112/47
[2017-01-16] MEDS: HYDROcodone/APAP 7.5/325MG 1 TAB TABLET PO PRN ×3 (04:16→20:39)
[2017-01-16 06:45] VITALS: BP 123/58
[2017-01-16] MEDS: hydroCHLOROthiazide 25 MG TABLET PO SCH (08:25)
[2017-01-16] MEDS: FUROSEMIDE 40 MG TABLET. PO SCH (08:25)
[2017-01-16] MEDS: DOCUSATE SODIUM 100 MG CAPSULE. PO SCH ×2 (08:25→20:39)
[2017-01-16] MEDS: CYCLOBENZAPRINE 10 MG TABLET. PO SCH (08:25)
[2017-01-16] MEDS: CHOLECALCIFEROL (VITAMIN D3) 1,000 UNIT TABLET PO SCH (08:25)
[2017-01-16] MEDS: DICLOFENAC SODIUM 25 MG TABLET.DR PO SCH ×2 (08:27→21:21)
--- NOTE | 2017-01-16 09:56 | PDOC ---
PROGRESS NOTES Subjective Subjective POD #1 up in chair some back and hip pain but left leg feels better ambulated with walker with PT Objective Objective Vital Signs Date Time Temp Pulse Resp B/P (MAP) Pulse Ox O2 Delivery O2 Flow Rate FiO2 01/16/17 07:48 Nasal Cannula 2.0 01/16/17 06:45 98.6 121 20 123/58 (79) 94 98.6 Physical Exam General: Alert, Oriented X3, Cooperative, No acute distress MUSCULOSKELETAL: Other (ARAYA) Neuro: Normal speech Psych/Mental Status: Mental status NL Skin: Other (dressing C,D,I, flat) Plan Plan of Care encouraged increased activity as tolerated continue PT OT consult consult Dr. Hall and Dr. Jasso Comment Review of Relevant I have reviewed the following items sophie (where applicable) has been applied. Medications Current Medications Ondansetron HCl (Zofran) 4 mg PRN Q6HRS PRN IV NAUSEA/VOMITING; Start 01/15/17 at 07:00; Stop 01/16/17 at 06:59; Status DC Fentanyl Citrate (Fentanyl 2ml Vial) 25 mcg PRN Q5MIN PRN IV MILD PAIN Last administered on 01/15/17 13:57; Start 01/15/17 at 07:00; Stop 01/16/17 at 06: 59; Status DC Fentanyl Citrate (Fentanyl 2ml Vial) 50 mcg PRN Q5MIN PRN IV MODERATE PAIN Last administered on 01/15/17 12:27; Start 01/15/17 at 07:00; Stop 01/16/17 at 06:59; Status DC Morphine Sulfate 1 mg PRN Q10MIN PRN IV SEVERE PAIN; Start 01/15/17 at 07:00; Stop 01/16/17 at 06:59; Status DC Ringer's Solution 1,000 ml @ 30 mls/hr Q24H IV Last administered on 01/15/17 08:04; Start 01/15/17 at 07:00; Stop 01/15/17 at 18:59; Status DC Lidocaine HCl (Xylocaine-Mpf 1% Vial) 2 ml PRN 1X PRN ID PRIOR TO IV START; Start 01/15/17 at 07:00; Stop 01/16/17 at 06:59; Status DC Hydromorphone HCl (Dilaudid) 0.5 mg PRN Q10MIN PRN IV SEV PAIN, Second choice; Start 01/15/17 at 07:00; Stop 01/16/17 at 06:59; Status DC Prochlorperazine Edisylate (Compazine) 5 mg PACU PRN PRN IV NAUSEA, MRX1; Start 01/15/17 at 07:00; Stop 01/16/17 at 06:59; Status DC Vancomycin HCl 250 ml @ 250 mls/hr 1X PREOP PRN IV PRIOR TO SURGERY Last administered on 01/15/17 09:00; Start 01/15/17 at 08:00 Bacitracin 66480 unit/Sodium Chloride 1,000 ml @ 1,000 mls/hr 1X PERIOP ONCE IRR Last administered on 01/15/17 09:46; Start 01/15/17 at 06:00; Stop at 06:59; Status DC Gelatin (Gelfoam Size 100) 1 each STK-MED ONCE .ROUTE Last administered on 09:46; Start 01/15/17 at 06:05; Stop 01/15/17 at 07:05; Status DC Ketorolac Tromethamine (Toradol For Or Only) 60 mg STK-MED ONCE .ROUTE Last administered on 01/15/17 09:46; Start 01/15/17 at 06:05; Stop 01/15/17 at 07:06 ; Status DC Thrombin 20,000 unit STK-MED ONCE TP Last administered on 01/15/17 09:46; Start 01/15/17 at 06:06; Stop 01/15/17 at 07:06; Status DC Bupivacaine HCl/ Epinephrine Bitart (Sensorcain-Mpf Epi 0.5%-1:080659) 10 ml STK -MED ONCE .ROUTE Last administered on 01/15/17 09:46; Start 01/15/17 at 07:18 ; Stop 01/15/17 at 07:19; Status DC Bupivacaine HCl/ Epinephrine Bitart (Sensorcain-Mpf Epi 0.5%-1:915672) 10 ml STK -MED ONCE .ROUTE Last administered on 01/15/17 09:46; Start 01/15/17 at 06:42 ; Stop 01/15/17 at 07:43; Status DC Propofol 20 ml @ As Directed STK-MED ONCE IV ; Start 01/15/17 at 08:12; Stop at 08:13; Status DC Lidocaine HCl (Lidocaine Pf 2% Vial) 5 ml STK-MED ONCE .ROUTE ; Start 01/15/17 at 08:12; Stop 01/15/17 at 08:13; Status DC Dexamethasone Sodium Phosphate (Decadron) 20 mg STK-MED ONCE .ROUTE ; Start 01/15/17 at 08:12; Stop 01/15/17 at 08:13; Status DC Ondansetron HCl (Zofran) 4 mg STK-MED ONCE .ROUTE ; Start 01/15/17 at 08:12; Stop 01/15/17 at 08:13; Status DC Fentanyl Citrate (Fentanyl 2ml Vial) 100 mcg STK-MED ONCE .ROUTE ; Start at 08:12; Stop 01/15/17 at 08:13; Status DC Remifentanil HCl (Ultiva) 2 mg STK-MED ONCE IV ; Start 01/15/17 at 08:13; Stop 01/15/17 at 08:14; Status DC Propofol 50 ml @ As Directed STK-MED ONCE IV ; Start 01/15/17 at 08:13; Stop at 08:14; Status DC Phenylephrine HCl 1 mg STK-MED ONCE IV ; Start 01/15/17 at 08:13; Stop 01/15/17 at 08:14; Status DC Ephedrine Sulfate 50 mg STK-MED ONCE IV ; Start 01/15/17 at 08:13; Stop at 08:14; Status DC Rocuronium [place] (Zemuron) 100 mg STK-MED ONCE .ROUTE ; Start 01/15/17 at 08: 20; Stop 01/15/17 at 08:21; Status DC Glycopyrrolate (Robinul) 1 mg STK-MED ONCE .ROUTE ; Start 01/15/17 at 09:30; Stop 01/15/17 at 09:31; Status DC Neostigmine Methylsulfate (Bloxiverz) 10 mg STK-MED ONCE .ROUTE ; Start at 09:30; Stop 01/15/17 at 09:31; Status DC Propofol 50 ml @ As Directed STK-MED ONCE IV ; Start 01/15/17 at 09:49; Stop at 09:50; Status DC Desflurane (Suprane) 90 ml STK-MED ONCE IH ; Start 01/15/17 at 10:40; Stop 01/15 at 10:41; Status DC Atorvastatin Calcium (Lipitor) 20 mg HS PO Last administered on 01/15/17 21:52 ; Start 01/15/17 at 21:00 Vitamin D (Vitamin D3) 1,000 unit DAILY PO Last administered on 01/16/17 08: 25; Start 01/16/17 at 09:00 Cyclobenzaprine HCl (Flexeril) 10 mg TID PO Last administered on 01/16/17 08: 25; Start 01/15/17 at 21:00 Furosemide (Lasix) 40 mg DAILY PO Last administered on 01/16/17 08:25; Start 01/16/17 at 09:00 Acetaminophen/ Hydrocodone Bitart (Lortab 7.5/325) 1 tab PRN Q6HRS PRN PO PAIN Last administered on 01/15/17 17:46; Start 01/15/17 at 12:15 Diclofenac Sodium (Voltaren) 75 mg BID PO Last administered on 01/16/17 08:27 ; Start 01/15/17 at 21:00 Hydrochlorothiazide (Hydrodiuril) 25 mg DAILY PO Last administered on 08:25; Start 01/16/17 at 09:00 Acetaminophen (Tylenol) 650 mg PRN Q6HRS PRN PO MILD PAIN / TEMP; Start at 12:15 Al Hydroxide/Mg Hydroxide (Mylanta Plus Xs) 30 ml PRN Q3HRS PRN PO HEARTBURN / GAS; Start 01/15/17 at 12:15 Calcium Carbonate/ Glycine (Tums) 500 mg PRN Q3HRS PRN PO INDIGESTION; Start 01/15/17 at 12:15 Diphenhydramine HCl (Benadryl) 25 mg PRN Q6HRS PRN PO ITCHING; Start 01/15/17 at 12:15 Diphenhydramine HCl (Benadryl) 25 mg PRN Q6HRS PRN IV ITCHING; Start 01/15/17 at 12:15 Zolpidem Tartrate (Ambien) 5 mg PRN QHS PRN PO INSOMNIA, MAY REPEAT IN 1HR; Start 01/15/17 at 12:15 Sodium Chloride (Normal Saline Flush) 3 ml QSHIFT PRN IV AFTER MEDS AND BLOOD DRAWS; Start 01/15/17 at 12:15 Potassium Chloride/Dextrose/ Sod Cl 1,000 ml @ 75 mls/hr [id number] IV Last administered on 01/15/17 15:16; Start 01/15/17 at 14:00; Stop 01/16/17 at 07: 09; Status DC Methocarbamol (Robaxin) 750 mg TID PO ; Start 01/15/17 at 14:00; Status UNV Docusate Sodium (Colace) 100 mg BID PO Last administered on 01/16/17 08:25; Start 01/15/17 at 21:00 Magnesium Hydroxide (Milk Of Magnesia) 2,400 mg PRN Q12HR PRN PO CONSTIPATION; Start 01/15/17 at 12:15 Acetaminophen/ Hydrocodone Bitart (Lortab 7.5/325) 2 tab PRN Q6HRS PRN PO PAIN Last administered on 01/16/17 04:16; Start 01/15/17 at 12:15 Acetaminophen/ Hydrocodone Bitart (Lortab 7.5/325) 1 tab PRN Q6HRS PRN PO PAIN Last administered on 01/15/17 21:52; Start 01/15/17 at 12:15 Fentanyl Citrate (Fentanyl 2ml Vial) 50 mcg PRN Q2HR PRN IV PAIN Last administered on 01/16/17 01:54; Start 01/15/17 at 12:15 Fentanyl Citrate (Fentanyl 2ml Vial) 25 mcg PRN Q2HR PRN IV PAIN; Start at 12:15 Albumin Human 250 ml @ As Directed STK-MED ONCE IV ; Start 01/15/17 at 12:38; Stop 01/15/17 at 12:39; Status DC Albumin Human 500 ml @ 125 mls/hr 1X ONCE IV Last administered on 01/15/17 12:56; Start 01/15/17 at 12:45; Stop 01/15/17 at 16:44; Status DC Active Scripts Active Lasix (Furosemide) 40 Mg Tablet 1 Tab PO DAILY Reported Vitamin D3 (Cholecalciferol (Vitamin D3)) 1,000 Unit Tablet 1 Tab PO DAILY Hydrocodone-Apap 7.5-325 (Hydrocodone Bit/Acetaminophen) 1 Each Tablet 1 Tab PO PRN Q6HRS PRN Diclofenac Sodium 75 Mg Tablet.dr 1 Tab PO BID Atorvastatin Calcium 20 Mg Tablet 20 Mg PO HS Cyclobenzaprine Hcl 10 Mg Tablet 1 Tab PO TID Hydrochlorothiazide Tablet (Hydrochlorothiazide) 12.5 Mg Tablet 1 Tab PO DAILY Vitals/I & O Vital Sign - Last 24 Hours 01/15/17 01/15/17 01/15/17 01/15/17 12:02 12:05 12:17 12:32 Temp 98.6 98.6 Pulse 103 93 102 Resp 26 17 18 B/P (MAP) 142/39 99/27 62/40 Pulse Ox 97 97 95 O2 Delivery Simple Mask Mask Simple Mask Simple Mask O2 Flow Rate 10 10 10 10 01/15/17 01/15/17 01/15/17 01/15/17 12:47 12:49 12:59 13:02 Pulse 103 101 Resp 24 16 14 B/P (MAP) 84/23 114/36 Pulse Ox 92 93 91 O2 Delivery Nasal Cannula Nasal Cannula Nasal Cannula O2 Flow Rate 4 4.0 4 01/15/17 01/15/17 01/15/17 01/15/17 13:17 13:32 13:47 14:05 Temp 98.1 98.1 Pulse 100 98 109 Resp 15 12 16 B/P (MAP) 110/38 118/43 117/42 Pulse Ox 91 90 92 O2 Delivery Nasal Cannula Nasal Cannula Nasal Cannula Nasal Cannula O2 Flow Rate 4 4 4 4.0 01/15/17 01/15/17 01/15/17 01/15/17 14:05 14:05 14:25 15:00 Temp 98.3 98.3 Pulse 114 108 116 114 Resp 20 24 B/P (MAP) 128/57 (80) 131/55 (80) 131/58 (82) 112/56 (74) Pulse Ox 97 95 95 O2 Delivery Nasal Cannula O2 Flow Rate 4.0 4.0 4.0 01/15/17 01/15/17 01/15/17 01/15/17 15:15 15:45 16:16 17:10 Pulse 111 110 109 118 Resp 20 20 20 20 B/P (MAP) 123/54 (77) 136/61 (86) 117/63 (81) 146/67 (93) Pulse Ox 92 96 94 95 O2 Delivery Nasal Cannula Nasal Cannula Nasal Cannula Nasal Cannula O2 Flow Rate 4.0 4.0 4.0 4.0 01/15/17 01/15/17 01/15/17 01/15/17 17:46 19:00 20:00 21:52 Temp 98.1 98.1 Pulse 115 Resp 19 20 B/P (MAP) 110/55 (73) Pulse Ox 94 94 O2 Delivery Nasal Cannula Nasal Cannula Nasal Cannula Nasal Cannula O2 Flow Rate 4.0 4.0 4.0 01/15/17 01/15/17 01/16/17 01/16/17 22:33 23:00 01:54 02:31 Temp 97.9 97.7 97.9 97.7 Pulse 109 110 Resp 19 20 20 19 B/P (MAP) 143/54 (83) 112/47 (68) Pulse Ox 94 95 O2 Delivery Nasal Cannula Room Air Nasal Cannula O2 Flow Rate 4.0 3.0 01/16/17 01/16/17 06:45 07:48 Temp 98.6 98.6 Pulse 121 Resp 20 B/P (MAP) 123/58 (79) Pulse Ox 94 O2 Delivery Nasal Cannula Nasal Cannula O2 Flow Rate 3.0 2.0 MECHELLE RUSSELL APRN Jan 16, 2017 09:55
[2017-01-16] MEDS ORDERED: ALBUTEROL SULFATE 2.5 MG/3 ML NEBU. NEB PRN (10:45)
--- NOTE | 2017-01-16 11:07 | PDOC2 ---
STEFANIA TINOCO BOX MAKER 01/16/17 1107: CARDIAC CONSULT DATE OF CONSULT Date of Consult DATE: 01/16/17 TIME: 11:02 REASON FOR CONSULT Reason for Consult: Tachycardia REFERRING PHYSICIAN Referring Physician: Romero SOURCE Source: Chart review, Patient HISTORY OF PRESENT ILLNESS HISTORY OF PRESENT ILLNESS This is a pleasant 61 yo female admitted for complains of low back with elective back surgery. She just had a lumbar laminectomy and she did well post operatively. Presently her pain is controlled and no fever. Report of SOA with exertion and resing on RA her O2 sat is 89 to 92%. She is now on O2 at 2LPM. Denies any palpitations, CP. Reports of no dizziness, nausea or diaphoresis. Consult is for tachycardia. Upon checking this was sinus tach with no significant changes. She has had LE edema bilaterally and this has not change much. She was in ED recently and was checked for DVT and it was negative. Positive for PND. No hx of VTE or EZEQUIEL. Positive for COPD but no coverage. Denies any CAD, VTE in the past. There is questionable AFIB and was placed on event monitor but failed to follow up in our office last yr after monitoring was complete. PAST MEDICAL HISTORY Cardiovascular: AFIB (?), HTN, Hyperlipidemia Pulmonary: COPD Heme/Onc: No pertinent hx Hepatobiliary: No pertinent hx Psych: No pertinent hx Musculoskeletal: low back pain, Osteoarthritis, Other (leg swelling) Rheumatologic: No pertinent hx Infectious disease: No pertinent hx ENT: No pertinent hx Renal/: No pertinent hx Endocrine: No pertinent hx Dermatology: No pertinent hx PAST SURGICAL HISTORY Past Surgical History: Appendectomy, Hernia Repair, Hysterectomy, Other ( ovarian cyst removal) FAMILY HISTORY Family History: Hypertension SOCIAL HISTORY Smoke: Quit ALCOHOL: none Drugs: None Lives: with Family CURRENT MEDICATIONS CURRENT MEDICATIONS Current Medications Medications (Trade) Dose Ordered Sig/Gregg Route PRN Reason Start Time Stop Time Status Last Admin Dose Admin Atorvastatin Calcium (Lipitor) 20 mg HS PO 01/15/17 21:00 01/15/17 21:52 Vitamin D (Vitamin D3) 1,000 unit DAILY PO 01/16/17 09:00 01/16/17 08:25 Cyclobenzaprine HCl (Flexeril) 10 mg TID PO 01/15/17 21:00 01/16/17 10:00 DC 01/16/17 08:25 Furosemide (Lasix) 40 mg DAILY PO 01/16/17 09:00 01/16/17 08:25 Acetaminophen/ Hydrocodone Bitart (Lortab 7.5/325) 1 tab PRN Q6HRS PRN PO PAIN 01/15/17 12:15 01/15/17 17:46 Diclofenac Sodium (Voltaren) 75 mg BID PO 01/15/17 21:00 01/16/17 08:27 Hydrochlorothiazide (Hydrodiuril) 25 mg DAILY PO 01/16/17 09:00 01/16/17 08:25 Potassium Chloride/Dextrose/ Sod Cl 1,000 ml @ 75 mls/hr [id number] IV 01/15/17 14:00 01/16/17 07:09 DC 01/15/17 15:16 Docusate Sodium (Colace) 100 mg BID PO 01/15/17 21:00 01/16/17 08:25 Acetaminophen/ Hydrocodone Bitart (Lortab 7.5/325) 2 tab PRN Q6HRS PRN PO PAIN 01/15/17 12:15 01/16/17 04:16 Acetaminophen/ Hydrocodone Bitart (Lortab 7.5/325) 1 tab PRN Q6HRS PRN PO PAIN 01/15/17 12:15 01/15/17 21:52 Fentanyl Citrate (Fentanyl 2ml Vial) 50 mcg PRN Q2HR PRN IV PAIN 01/15/17 12:15 01/16/17 01:54 Albumin Human 500 ml @ 125 mls/hr 1X ONCE IV 01/15/17 12:45 01/15/17 16:44 DC 01/15/17 12:56 ALLERGIES ALLERGIES: Coded Allergies: Penicillins (Verified Allergy, Intermediate, 01/15/17) latex (Verified Allergy, Intermediate, Rash, 01/15/17) ROS Review of System 14 point ROS evaluated with pertinent positives noted per HPI PHYSICAL EXAM General: Alert, Oriented X3, Cooperative, No acute distress HEENT: Atraumatic, Mucous membr. moist/pink Lungs: Other (bibasilar crackles) Heart: Regular rate (Sinus tach), Normal S1, Normal S2 Abdomen: Soft, No tenderness Extremities: No cyanosis, Other (2+ bilateral LE pitting edema) Skin: No breakdown, No significant lesion, Other (lower back incision dressing) Neuro: Normal speech, Sensation intact Psych/Mental Status: Mental status NL, Mood NL MUSCULOSKELETAL: Osteoarthritic changes both hands VITALS VITALS Vital Signs Date Time Temp Pulse Resp B/P (MAP) Pulse Ox O2 Delivery O2 Flow Rate FiO2 01/16/17 07:48 Nasal Cannula 2.0 01/16/17 06:45 98.6 121 20 123/58 (79) 94 98.6 IMAGES IMAGES Impression: No evidence of deep venous thrombosis left lower extremity venous system. DATE: 12/21/16 1643 ASSESSMENT/PLAN ASSESSMENT/PLAN 1. Sinus tachycardia: No ectopies. Likely due to hypoxia/CHF 2. Acute CHF with possible diastolic dysfunction. 3. HTN: controlled 4. HLP 5. Hx of of COPD with past tobaccoism: no home coverage. 6. Leg edema: tender bilateral. Recommendations 1. Continue with O2. TTE today. CXR. Pt has received PO HCTZ/lasix and will add addl IV lasix. 2. Will need COPD coverage and will defer to PCP 3. Will repeat LE sono as this is postoperative. 4. CBC, transfer to [facility] tele 4N. 5. BMP, Mg, BNP Problems: HANG BARNARD MD 01/16/17 1654: CARDIAC CONSULT ALLERGIES ALLERGIES: Coded Allergies: Penicillins (Verified Allergy, Intermediate, 01/15/17) latex (Verified Allergy, Intermediate, Rash, 01/15/17) ASSESSMENT/PLAN ASSESSMENT/PLAN Patient seen and examined. Agree with above nurse practitioner note. Morbidly ill and obese. Continue diuresis as tolerated. Problems: STEFANIA TINOCO APRN Jan 16, 2017 11:07 HANG BARNARD MD Jan 16, 2017 16:54
--- NOTE | 2017-01-16 11:08 | EKG ---
[facility] [address] [place] [address] Test Date: 2017-01-16 Test Time: 11:04:07 Pat Name: NIVIA RUIZ Department: Room: [facility] Gender: F Service Attendant: DUNIA : 1955 Requested By: JARET WILL Order Number: [id number] Reading MD: Chelo Interiano Measurements Intervals [place] Rate: 104 P: 73 OK: 134 QRS: 63 QRSD: 90 T: 39 QT: 366 QTc: 488 Interpretive Statements SINUS TACHYCARDIA INCOMPLETE RIGHT BUNDLE BRANCH BLOCK Electronically Signed On 01-16-2017 20:09:45 CDT by Chelo Interiano
[2017-01-16 11:10] LABS: CALCIUM 9.7 mg/dL (8.5-10.1); CREATININE 0.9 mg/dL (0.6-1.0); GFR 63.9; POTASSIUM 3.4 mmol/L (3.5-5.1)
[2017-01-16] MEDS ORDERED: FUROSEMIDE 20 MG/2 ML VIAL. IVP ONE (11:30)
--- NOTE | 2017-01-16 12:56 | RAD ---
Indication bilateral leg swelling. Recent surgery. Grayscale color Doppler and spectral imaging was performed. The examination was targeted to the veins of the lower extremities. There is study was somewhat limited. There is moderate bilateral edema. Those portions of the common femoral arteries which were seen, bilaterally, appeared normal. The femoral veins also appeared grossly normal. No thrombus was seen. Similarly the popliteal veins appeared normal. Bilaterally the calf veins which were seen appeared unremarkable. IMPRESSION: Slightly limited study. No definite DVT seen in either lower extremity
[2017-01-16] MEDS: METHOCARBAMOL 750 MG TABLET PO PRN ×2 (13:08→20:39)
[2017-01-16 13:14] VITALS: BP 115/59
[2017-01-16 14:57] VITALS: BP 122/57
--- NOTE | 2017-01-16 15:56 | RAD ---
Indication difficult breathing. Congestive heart failure. A single view of the chest was obtained and is compared to an examination 12/21/2016. Heart size is within normal limits. There is no gross congestive heart failure. There is some minimal volume loss at the left lung base likely reflecting atelectasis. There may be a very tiny left pleural effusion. There is no consolidated pneumonia. IMPRESSION: No definite acute or focal process. No gross congestive heart failure seen
--- NOTE | 2017-01-16 16:21 | CARD ---
APPROVED REPORT EXAM: Two-dimensional and M-mode echocardiogram with Doppler and color Doppler. Other Information Quality : Fair Rhythm : Tachycardia INDICATION Dyspnea 2D DIMENSIONS RVDd3.4 (2.9-3.5cm)Left Atrium(2D)3.2 (1.6-4.0cm) IVSd1.1 (0.7-1.1cm)Aortic Root(2D)2.7 (2.0-3.7cm) LVDd4.1 (3.9-5.9cm)LVOT Diameter2.0 (1.8-2.4cm) PWd1.1 (0.7-1.1cm)LVDs2.9 (2.5-4.0cm) FS (%) 29.8 %SV41.8 ml LVEF(%)57.4 (>50%) Aortic Valve AoV Peak [place].180.2cm/sAoV VTI28.8cm AO Peak GR.13.0mmHgLVOT VTI 24.67cm AO Mean GR.8mmHgAVA (VTI)3.00cm2 Mitral Valve MV E Snqxrjad730.6cm/sMV DECEL [id number] MV A Auotijpy273.3cm/sE/A Ratio0.8 MV A Avpvxktc15ks TDI Lateral E' P. V10.95cm/sMedial E' P. V10.95cm/s E/Lateral E'10.0E/Medial E'10.0 Tricuspid Valve TR P. Wzhqrsvp245ok/sRAP CVLBWAGV9fhMp TR Peak Gr.30leArHJVQ67vqKn LEFT VENTRICLE The left ventricle is normal size. There is normal left ventricular wall thickness. Left ventricle sy stolic function is normal. The Ejection Fraction is 55-60%. There is normal LV segmental wall motion. Tissue Doppler imaging reveals mild left ventricular diastolic dysfunction. RIGHT VENTRICLE The right ventricle is normal size. The right ventricular systolic function is normal. ATRIA The left atrium size is normal. The right atrium size is normal. The interatrial septum is intact wit h no evidence for an atrial septal defect or patent foramen ovale as noted on 2-D or Doppler imaging. AORTIC VALVE The aortic valve is not well visualized. Doppler and Color Flow revealed no significant aortic regurg itation. There is no significant aortic valvular stenosis. MITRAL VALVE Not well visualized. There is no mitral valve stenosis. Doppler and Color Flow revealed mild mitral r egurgitation. TRICUSPID VALVE The tricuspid valve is not well visualized. Doppler and Color Flow revealed trace to mild tricuspid r egurgitation. The PA pressure was estimated at 38 mmHg. There is no tricuspid valve stenosis. PULMONIC VALVE The pulmonic valve is not well visualized. Doppler and Color Flow revealed no pulmonic valvular regur gitation. There is no pulmonic valvular stenosis. GREAT VESSELS The aortic root is normal in size. The ascending aorta is normal in size. The IVC is normal in size a nd collapses >50% with inspiration. PERICARDIAL EFFUSION There is no evidence of significant pericardial effusion. Critical Notification Critical Value: No <Conclusion> Left ventricle systolic function is normal. The Ejection Fraction is 55-60%. There is normal LV segmental wall motion.
[2017-01-16 19:10] VITALS: BP 127/59
[2017-01-16] MEDS: ATORVASTATIN CALCIUM 20 MG TABLET PO SCH (20:39)
--- NOTE | 2017-01-16 21:05 | CONS ---
DATE OF CONSULTATION: 01/16/2017 LOCATION: She is in room 452 when I saw her. ATTENDING PHYSICIAN: Dr. Peoples. REASON FOR CONSULTATION: The patient was seen at the request of Dr. Peoples for rehab evaluation. HISTORY OF PRESENT ILLNESS: This is a 61-year-old female with chronic lower back pain going on for about 10 years. She has been on disability. She underwent lumbar decompression laminectomy for treatment of lumbar spinal stenosis. Postop she admits some easing of her lower extremity pain, but continues with the back pain. The patient was noted with shortness of breath on exertion and rising heart rate and oxygen saturation around 89-92%. The patient denies any chest pain, dizziness, nausea or diaphoresis. The patient was noted with lower extremity edema, which has not changed much. She was seen in the Emergency Room recently and was checked for deep venous thrombosis and it was negative, positive for paroxysmal nocturnal dyspnea, history of chronic obstructive pulmonary disease. She denies any coronary artery disease or venous thrombosis in the past. She had questionable atrial fibrillation and was placed on event monitor, but failed to follow in the office last year. The patient also with known hypertension, hyperlipidemia, status post appendectomy, hernia repair, hysterectomy, ovarian cyst removal. Family history of hypertension. She lives with her family, has two steps with railing to enter the house and she has been walking with a roller walker and limping on her feet, especially walking on her tip toes prior to the present hospitalization. She is known allergic to PENICILLIN AND LATEX. The patient admits continued back pain. She was noted with NT pro-brain natriuretic peptide of 658. The patient had venous duplex Dopplers of lower extremities, which failed to reveal any evidence of deep venous thrombosis. PHYSICAL EXAMINATION: Today, revealed a middle-aged female. She is alert, oriented to time, place, person and circumstance and follows commands appropriately. She is receiving oxygen by nasal cannula. She had 4+/5 grade muscle strength overall and deep tendon reflexes are absent at both ankles. She had equal perception of touch and pinprick sensation bilaterally. She had significant stiffness of both hips and knee joints, especially left one. She had edema of both feet, legs and thighs and left knee swelling too. The patient had limitation of knee joint full extension to some extent. She had 5/5 grade muscle strength in her upper extremities. She seemed to have equal perception of touch and pinprick sensation bilaterally. She is independent with bed mobility and requires supervision to standby assistance for transfers. I have not tested her ambulation skills at this time. She had dressing to her lumbar spine area. ASSESSMENT: Mobility and self-care limitation in a patient with chronic lower back pain from degenerative disk disease and degenerative joint disease of lumbar vertebrae with right lumbar radiculitis, postop lumbar decompression laminectomy done on 01/15/2017. The patient with chronic lower extremity edema with some shortness of breath on exertion, degenerative joint disease changes of left knee, to rule out associated degenerative joint disease of right knee and both hips, clinical evidence of peripheral neuropathy. The patient with known chronic obstructive pulmonary disease, hypertension, hyperlipidemia, questionable atrial fibrillation. RECOMMENDATIONS: Agree with the plan for physical therapy and occupational therapy. To obtain x-rays of her hips and knees to determine the extent of her degenerative changes. To consider injecting her knees if the pain is limiting her activity. To consider transfer to rehab or [facility] care unit depending upon her progress in the next few days. Dr. Peoples, I appreciate asking me to participate in the care of this interesting patient. I will be glad to follow her with you as needed for rehabilitation. KATYA CHRISTIANSEN MD DR: NAYA/jennifer JOB#: [id number] / [id number] JARET Rodriguez MD
[2017-01-16 23:10] VITALS: BP 122/61
[2017-01-17 03:10] VITALS: BP 110/53
[2017-01-17] MEDS: METHOCARBAMOL 750 MG TABLET PO PRN ×3 (03:22→19:51)
[2017-01-17] MEDS: HYDROcodone/APAP 7.5/325MG 1 TAB TABLET PO PRN ×4 (03:22→22:38)
[2017-01-17 07:15] VITALS: BP 138/67
--- NOTE | 2017-01-17 07:28 | RAD ---
AP standing knees, single view, 01/16/2017: History: Knee stiffness There is severe narrowing of the medial compartment left knee joint with subchondral sclerosis and spurring. The findings have worsened markedly since 07/12/2011. There is a mild associated varus deformity on the left. There is mild narrowing of the right knee joint. No acute fracture or dislocation is identified on this limited exam.
--- NOTE | 2017-01-17 07:30 | RAD ---
Pelvis with both hips, 5 views, 01/16/2017: History: Pain in both hips There is mild narrowing of both hip joints with mild marginal spurring. There is minimal spurring at the symphysis pubis. Moderate degenerative change is noted in the lower lumbar spine. No acute fracture or dislocation is identified. IMPRESSION: 1. Mild degenerative change at both hip joints. 2. No acute bony abnormality is detected.
--- NOTE | 2017-01-17 08:46 | PDOC ---
PROGRESS NOTES Subjective Subjective She admits lower extremity muscle spasms. Objective Objective Vital Signs Date Time Temp Pulse Resp B/P (MAP) Pulse Ox O2 Delivery O2 Flow Rate FiO2 01/17/17 08:11 Nasal Cannula 2.0 01/17/17 04:22 20 96 01/17/17 03:10 97.8 98 110/53 (72) 97.8 Intake and Output 01/18/17 06:59 Output Total 190 ml Balance -190 ml Output Urine Total 190 ml # Voids 1 Physical Exam Physical Exam She is comfortable sitting in bedside chair and less edema of her lower extremities and she is walking with roller walker.She had severe narrwing of left knee medial knee joint line and early DJD changes in both hips and right knee as for x-ray. Plan Plan of Care To try muscle relaxants and lumbar corset and to consider injecting her left knee and also providing her with medial freezer unloader left knee brace and home with home health or transfer to SNF for a short stay when medically stable. Comment Review of Relevant I have reviewed the following items sophie (where applicable) has been applied. Labs Laboratory Tests Test 01/16/17 10:50 Sodium Level 141 mmol/L (136-145) Potassium Level 3.4 mmol/L (3.5-5.1) Chloride Level 99 mmol/L (98-107) Carbon Dioxide Level 33 mmol/L (21-32) Anion Gap 9 (6-14) Blood Urea Nitrogen 23 mg/dL (7-20) Creatinine 0.9 mg/dL (0.6-1.0) Estimated GFR (Cockcroft-Gault) 63.9 Glucose Level 106 mg/dL (70-99) Calcium Level 9.7 mg/dL (8.5-10.1) Magnesium Level 2.0 mg/dL (1.8-2.4) YE-Lhu-P-Type Natriuretic Peptide 658 pg/mL (0-124) Laboratory Tests Test 01/16/17 10:50 Sodium Level 141 mmol/L (136-145) Potassium Level 3.4 mmol/L (3.5-5.1) Chloride Level 99 mmol/L (98-107) Carbon Dioxide Level 33 mmol/L (21-32) Anion Gap 9 (6-14) Blood Urea Nitrogen 23 mg/dL (7-20) Creatinine 0.9 mg/dL (0.6-1.0) Estimated GFR (Cockcroft-Gault) 63.9 Glucose Level 106 mg/dL (70-99) Calcium Level 9.7 mg/dL (8.5-10.1) Magnesium Level 2.0 mg/dL (1.8-2.4) ZN-Gyd-S-Type Natriuretic Peptide 658 pg/mL (0-124) Medications Current Medications Ondansetron HCl (Zofran) 4 mg PRN Q6HRS PRN IV NAUSEA/VOMITING; Start 01/15/17 at 07:00; Stop 01/16/17 at 06:59; Status DC Fentanyl Citrate (Fentanyl 2ml Vial) 25 mcg PRN Q5MIN PRN IV MILD PAIN Last administered on 01/15/17 13:57; Start 01/15/17 at 07:00; Stop 01/16/17 at 06: 59; Status DC Fentanyl Citrate (Fentanyl 2ml Vial) 50 mcg PRN Q5MIN PRN IV MODERATE PAIN Last administered on 01/15/17 12:27; Start 01/15/17 at 07:00; Stop 01/16/17 at 06:59; Status DC Morphine Sulfate 1 mg PRN Q10MIN PRN IV SEVERE PAIN; Start 01/15/17 at 07:00; Stop 01/16/17 at 06:59; Status DC Ringer's Solution 1,000 ml @ 30 mls/hr Q24H IV Last administered on 01/15/17 08:04; Start 01/15/17 at 07:00; Stop 01/15/17 at 18:59; Status DC Lidocaine HCl (Xylocaine-Mpf 1% Vial) 2 ml PRN 1X PRN ID PRIOR TO IV START; Start 01/15/17 at 07:00; Stop 01/16/17 at 06:59; Status DC Hydromorphone HCl (Dilaudid) 0.5 mg PRN Q10MIN PRN IV SEV PAIN, Second choice; Start 01/15/17 at 07:00; Stop 01/16/17 at 06:59; Status DC Prochlorperazine Edisylate (Compazine) 5 mg PACU PRN PRN IV NAUSEA, MRX1; Start 01/15/17 at 07:00; Stop 01/16/17 at 06:59; Status DC Vancomycin HCl 250 ml @ 250 mls/hr 1X PREOP PRN IV PRIOR TO SURGERY Last administered on 01/15/17 09:00; Start 01/15/17 at 08:00 Bacitracin 77704 unit/Sodium Chloride 1,000 ml @ 1,000 mls/hr 1X PERIOP ONCE IRR Last administered on 01/15/17 09:46; Start 01/15/17 at 06:00; Stop at 06:59; Status DC Gelatin (Gelfoam Size 100) 1 each STK-MED ONCE .ROUTE Last administered on 09:46; Start 01/15/17 at 06:05; Stop 01/15/17 at 07:05; Status DC Ketorolac Tromethamine (Toradol For Or Only) 60 mg STK-MED ONCE .ROUTE Last administered on 01/15/17 09:46; Start 01/15/17 at 06:05; Stop 01/15/17 at 07:06 ; Status DC Thrombin 20,000 unit STK-MED ONCE TP Last administered on 01/15/17 09:46; Start 01/15/17 at 06:06; Stop 01/15/17 at 07:06; Status DC Bupivacaine HCl/ Epinephrine Bitart (Sensorcain-Mpf Epi 0.5%-1:754169) 10 ml STK -MED ONCE .ROUTE Last administered on 01/15/17 09:46; Start 01/15/17 at 07:18 ; Stop 01/15/17 at 07:19; Status DC Bupivacaine HCl/ Epinephrine Bitart (Sensorcain-Mpf Epi 0.5%-1:450347) 10 ml STK -MED ONCE .ROUTE Last administered on 01/15/17 09:46; Start 01/15/17 at 06:42 ; Stop 01/15/17 at 07:43; Status DC Propofol 20 ml @ As Directed STK-MED ONCE IV ; Start 01/15/17 at 08:12; Stop at 08:13; Status DC Lidocaine HCl (Lidocaine Pf 2% Vial) 5 ml STK-MED ONCE .ROUTE ; Start 01/15/17 at 08:12; Stop 01/15/17 at 08:13; Status DC Dexamethasone Sodium Phosphate (Decadron) 20 mg STK-MED ONCE .ROUTE ; Start 01/15/17 at 08:12; Stop 01/15/17 at 08:13; Status DC Ondansetron HCl (Zofran) 4 mg STK-MED ONCE .ROUTE ; Start 01/15/17 at 08:12; Stop 01/15/17 at 08:13; Status DC Fentanyl Citrate (Fentanyl 2ml Vial) 100 mcg STK-MED ONCE .ROUTE ; Start at 08:12; Stop 01/15/17 at 08:13; Status DC Remifentanil HCl (Ultiva) 2 mg STK-MED ONCE IV ; Start 01/15/17 at 08:13; Stop 01/15/17 at 08:14; Status DC Propofol 50 ml @ As Directed STK-MED ONCE IV ; Start 01/15/17 at 08:13; Stop at 08:14; Status DC Phenylephrine HCl 1 mg STK-MED ONCE IV ; Start 01/15/17 at 08:13; Stop 01/15/17 at 08:14; Status DC Ephedrine Sulfate 50 mg STK-MED ONCE IV ; Start 01/15/17 at 08:13; Stop at 08:14; Status DC Rocuronium Corinne (Zemuron) 100 mg STK-MED ONCE .ROUTE ; Start 01/15/17 at 08: 20; Stop 01/15/17 at 08:21; Status DC Glycopyrrolate (Robinul) 1 mg STK-MED ONCE .ROUTE ; Start 01/15/17 at 09:30; Stop 01/15/17 at 09:31; Status DC Neostigmine Methylsulfate (Bloxiverz) 10 mg STK-MED ONCE .ROUTE ; Start at 09:30; Stop 01/15/17 at 09:31; Status DC Propofol 50 ml @ As Directed STK-MED ONCE IV ; Start 01/15/17 at 09:49; Stop at 09:50; Status DC Desflurane (Suprane) 90 ml STK-MED ONCE IH ; Start 01/15/17 at 10:40; Stop 01/15 at 10:41; Status DC Atorvastatin Calcium (Lipitor) 20 mg HS PO Last administered on 01/16/17t 20: 39; Start 01/15/17 at 21:00 Vitamin D (Vitamin D3) 1,000 unit DAILY PO Last administered on 01/16/17 08: 25; Start 01/16/17 at 09:00 Cyclobenzaprine HCl (Flexeril) 10 mg TID PO Last administered on 01/16/17 08: 25; Start 01/15/17 at 21:00; Stop 01/16/17 at 10:00; Status DC Furosemide (Lasix) 40 mg DAILY PO Last administered on 01/16/17 08:25; Start 01/16/17 at 09:00 Acetaminophen/ Hydrocodone Bitart (Lortab 7.5/325) 1 tab PRN Q6HRS PRN PO PAIN Last administered on 01/17/17 03:22; Start 01/15/17 at 12:15 Diclofenac Sodium (Voltaren) 75 mg BID PO Last administered on 01/16/17 21:21 ; Start 01/15/17 at 21:00 Hydrochlorothiazide (Hydrodiuril) 25 mg DAILY PO Last administered on 08:25; Start 01/16/17 at 09:00 Acetaminophen (Tylenol) 650 mg PRN Q6HRS PRN PO MILD PAIN / TEMP; Start at 12:15 Al Hydroxide/Mg Hydroxide (Mylanta Plus Xs) 30 ml PRN Q3HRS PRN PO HEARTBURN / GAS; Start 01/15/17 at 12:15 Calcium Carbonate/ Glycine (Tums) 500 mg PRN Q3HRS PRN PO INDIGESTION; Start 01/15/17 at 12:15 Diphenhydramine HCl (Benadryl) 25 mg PRN Q6HRS PRN PO ITCHING; Start 01/15/17 at 12:15 Diphenhydramine HCl (Benadryl) 25 mg PRN Q6HRS PRN IV ITCHING; Start 01/15/17 at 12:15 Zolpidem Tartrate (Ambien) 5 mg PRN QHS PRN PO INSOMNIA, MAY REPEAT IN 1HR; Start 01/15/17 at 12:15 Sodium Chloride (Normal Saline Flush) 3 ml QSHIFT PRN IV AFTER MEDS AND BLOOD DRAWS; Start 01/15/17 at 12:15 Potassium Chloride/Dextrose/ Sod Cl 1,000 ml @ 75 mls/hr [id number] IV Last administered on 01/15/17 15:16; Start 01/15/17 at 14:00; Stop 01/16/17 at 07: 09; Status DC Methocarbamol (Robaxin) 750 mg TID PO ; Start 01/15/17 at 14:00; Status UNV Docusate Sodium (Colace) 100 mg BID PO Last administered on 01/16/17 20:39; Start 01/15/17 at 21:00 Magnesium Hydroxide (Milk Of Magnesia) 2,400 mg PRN Q12HR PRN PO CONSTIPATION; Start 01/15/17 at 12:15 Acetaminophen/ Hydrocodone Bitart (Lortab 7.5/325) 2 tab PRN Q6HRS PRN PO PAIN Last administered on 01/16/17 20:39; Start 01/15/17 at 12:15 Acetaminophen/ Hydrocodone Bitart (Lortab 7.5/325) 1 tab PRN Q6HRS PRN PO PAIN Last administered on 01/15/17 21:52; Start 01/15/17 at 12:15 Fentanyl Citrate (Fentanyl 2ml Vial) 50 mcg PRN Q2HR PRN IV PAIN Last administered on 01/16/17 01:54; Start 01/15/17 at 12:15 Fentanyl Citrate (Fentanyl 2ml Vial) 25 mcg PRN Q2HR PRN IV PAIN; Start at 12:15 Albumin Human 250 ml @ As Directed STK-MED ONCE IV ; Start 01/15/17 at 12:38; Stop 01/15/17 at 12:39; Status DC Albumin Human 500 ml @ 125 mls/hr 1X ONCE IV Last administered on 01/15/17 12:56; Start 01/15/17 at 12:45; Stop 01/15/17 at 16:44; Status DC Methocarbamol (Robaxin) 750 mg PRN TID PRN PO MUSCLE SPASMS Last administered on 01/17/17 03:22; Start 01/16/17 at 10:00 Albuterol Sulfate (Ventolin Neb Soln) 2.5 mg PRN Q4HRS PRN NEB SHORTNESS OF BREATH; Start 01/16/17 at 10:45 Furosemide (Lasix) 20 mg 1X ONCE IVP Last administered on 10/10/17at 13:13; Start 01/16/17 at 11:30; Stop 01/16/17 at 11:31; Status DC Active Scripts Active Lasix (Furosemide) 40 Mg Tablet 1 Tab PO DAILY Reported Vitamin D3 (Cholecalciferol (Vitamin D3)) 1,000 Unit Tablet 1 Tab PO DAILY Hydrocodone-Apap 7.5-325 (Hydrocodone Bit/Acetaminophen) 1 Each Tablet 1 Tab PO PRN Q6HRS PRN Diclofenac Sodium 75 Mg Tablet.dr 1 Tab PO BID Atorvastatin Calcium 20 Mg Tablet 20 Mg PO HS Cyclobenzaprine Hcl 10 Mg Tablet 1 Tab PO TID Hydrochlorothiazide Tablet (Hydrochlorothiazide) 12.5 Mg Tablet 1 Tab PO DAILY Vitals/I & O Vital Sign - Last 24 Hours 01/16/17 01/16/17 01/16/17 01/16/17 11:25 13:12 13:14 13:45 Temp 97.9 97.9 Pulse 107 Resp 24 24 B/P (MAP) 115/59 (77) Pulse Ox 94 93 93 O2 Delivery Nasal Cannula Nasal Cannula Nasal Cannula Nasal Cannula O2 Flow Rate 2.0 2.0 2.0 2.0 01/16/17 01/16/17 01/16/17 01/16/17 14:57 19:10 20:00 20:39 Temp 98.0 97.7 98.0 97.7 Pulse 110 106 Resp 22 20 22 B/P (MAP) 122/57 (78) 127/59 (81) Pulse Ox 94 93 93 O2 Delivery Nasal Cannula Nasal Cannula Nasal Cannula Nasal Cannula O2 Flow Rate 2.0 2.0 2.0 2.0 01/16/17 01/16/17 01/17/17 01/17/17 21:39 23:10 03:10 03:22 Temp 97.9 97.8 97.9 97.8 Pulse 97 98 Resp 22 20 21 22 B/P (MAP) 122/61 (81) 110/53 (72) Pulse Ox 96 93 96 O2 Delivery Nasal Cannula Nasal Cannula Nasal Cannula Nasal Cannula O2 Flow Rate 2.0 2.0 2.0 2.0 01/17/17 01/17/17 04:22 08:11 Resp 20 Pulse Ox 96 O2 Delivery Nasal Cannula Nasal Cannula O2 Flow Rate 2.0 2.0 Intake and Output 01/17/17 01/17/1701/18/17 14:59 22:59 06:59 Output Total 190 ml Balance -190 ml KATYA CHRISTIANSEN MD Jan 17, 2017 08:46
[2017-01-17] MEDS: DOCUSATE SODIUM 100 MG CAPSULE. PO SCH ×2 (09:17→19:51)
[2017-01-17] MEDS: CHOLECALCIFEROL (VITAMIN D3) 1,000 UNIT TABLET PO SCH (09:17)
[2017-01-17] MEDS: hydroCHLOROthiazide 25 MG TABLET PO SCH (09:17)
[2017-01-17] MEDS: FUROSEMIDE 40 MG TABLET. PO SCH (09:17)
[2017-01-17] MEDS: DICLOFENAC SODIUM 25 MG TABLET.DR PO SCH ×2 (09:22→19:51)
[2017-01-17 09:50] LABS: BASO % 1 % (0-3); EOS % 1 % (0-3); HEMATOCRIT 34.7 % (36.0-47.0); LYMPH # 2.6 x10^3/uL (1.0-4.8); LYMPH % 27 % (24-48); MEAN CORPUSCULAR HEMOGLOBIN 31 pg (25-35); MEAN CORPUSCULAR HGB CONC 35 g/dL (31-37); MEAN CORPUSCULAR VOLUME 90 fL (79-100); MONO % 10 % (0-9); NEUT % 61 % (31-73); PLATELET COUNT 235 x10^3/uL (140-400); RED BLOOD COUNT 3.86 x10^6/uL (3.50-5.40); RED CELL DISTRIBUTION WIDTH 13.1 % (11.5-14.5); WHITE BLOOD COUNT 9.3 x10^3/uL (4.0-11.0)
[2017-01-17 09:54] LABS: ALBUMIN 3.7 g/dL (3.4-5.0); ALBUMIN/GLOBULIN RATIO 1.2 (1.0-1.7); CALCIUM 8.9 mg/dL (8.5-10.1); CREATININE 0.8 mg/dL (0.6-1.0); GFR 73.2; POTASSIUM 3.2 mmol/L (3.5-5.1); TOTAL BILIRUBIN 0.5 mg/dL (0.2-1.0); TOTAL PROTEIN 6.7 g/dL (6.4-8.2)
[2017-01-17] MEDS ORDERED: POTASSIUM CHLORIDE 20 MEQ TABLET.ER. PO ONE (10:30)
[2017-01-17 11:00] VITALS: BP 138/67
--- NOTE | 2017-01-17 12:25 | PDOC ---
STEFANIA TINOCO MACHINE CLERICAL VERIFIER 01/17/17 1225: CARDIO Progress Notes Date and Time Date of Service 01/17/2017 Time of Evaluation 1150 Subjective Subjective: No Chest Pain, No Palpitations, No Dizziness, Other (mild OMER. ) Vitals Vitals Vital Signs Date Time Temp Pulse Resp B/P (MAP) Pulse Ox O2 Delivery O2 Flow Rate FiO2 01/17/17 10:19 22 93 Nasal Cannula 2.0 01/17/17 07:15 97.9 103 138/67 (90) 97.9 Weight Weight [ ] Input and Output Intake and Output Intake and Output 01/18/17 07:00 Output Total 190 ml Balance -190 ml Output Urine Total 190 ml # Voids 1 Laboratory Labs Laboratory Tests Test 01/17/17 08:58 White Blood Count 9.3 x10^3/uL (4.0-11.0) Red Blood Count 3.86 x10^6/uL (3.50-5.40) Hemoglobin 12.0 g/dL (12.0-15.5) Hematocrit 34.7 % (36.0-47.0) Mean Corpuscular Volume 90 fL (79-100) Mean Corpuscular Hemoglobin 31 pg (25-35) Mean Corpuscular Hemoglobin Concent 35 g/dL (31-37) Red Cell Distribution Width 13.1 % (11.5-14.5) Platelet Count 235 x10^3/uL (140-400) Neutrophils (%) (Auto) 61 % (31-73) Lymphocytes (%) (Auto) 27 % (24-48) Monocytes (%) (Auto) 10 % (0-9) Eosinophils (%) (Auto) 1 % (0-3) Basophils (%) (Auto) 1 % (0-3) Neutrophils # (Auto) 5.7 x10^3uL (1.8-7.7) Lymphocytes # (Auto) 2.6 x10^3/uL (1.0-4.8) Monocytes # (Auto) 0.9 x10^3/uL (0.0-1.1) Eosinophils # (Auto) 0.1 x10^3/uL (0.0-0.7) Basophils # (Auto) 0.0 x10^3/uL (0.0-0.2) Sodium Level 141 mmol/L (136-145) Potassium Level 3.2 mmol/L (3.5-5.1) Chloride Level 101 mmol/L (98-107) Carbon Dioxide Level 34 mmol/L (21-32) Anion Gap 6 (6-14) Blood Urea Nitrogen 27 mg/dL (7-20) Creatinine 0.8 mg/dL (0.6-1.0) Estimated GFR (Cockcroft-Gault) 73.2 BUN/Creatinine Ratio 34 (6-20) Glucose Level 110 mg/dL (70-99) Calcium Level 8.9 mg/dL (8.5-10.1) Magnesium Level 2.0 mg/dL (1.8-2.4) Total Bilirubin 0.5 mg/dL (0.2-1.0) Aspartate Amino Transf (AST/SGOT) 28 U/L (15-37) Alanine Aminotransferase (ALT/SGPT) 39 U/L (14-59) Alkaline Phosphatase 71 U/L (46-116) Total Protein 6.7 g/dL (6.4-8.2) Albumin 3.7 g/dL (3.4-5.0) Albumin/Globulin Ratio 1.2 (1.0-1.7) Thyroid Stimulating Hormone (TSH) 5.780 uIU/mL (0.358-3.74) Physical Exam Chest: Symmetric LUNGS: Other (diminished bases; O2 sat 92% on RA) Heart: S1S2, RRR (SR/ST) Abdomen: Soft N/T Extremities: No Calf Tenderness, Other (2+ bilateral LE pitting edema) Neurology: alert, oriented, follow commands Assessment Assessment 1. Sinus tachycardia: Remains to have periods of sinus tach 90-110. Mild OMER. No CP. Likely reactive to pulmonary issue. 2. Acute CHF with possible diastolic dysfunction: better. TTE with normal EF/ wall motion with mild to moderate pulmonary HTN. 3. HTN: controlled 4. HLP 5. COPD with past tobaccoism: no home coverage. 6. Leg edema: tender bilateral. US neg for DVT. Likely venous insufficiency. 7. Lumbar stenosis: POD#2 laminectomy. 8. Subclinical hypothyroidism: TSH 5s Recommendations 1. CTA chest ordered by PCP 2. COPD coverage and will defer to PCP 3. Replace K. DC HCTZ and maintain lasix. 4. Continue with secondary prevention. Compression stockings. HANG BARNARD MD 01/17/17 1858: CARDIO Progress Notes Plan Plan Pt. seen and examined. 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 Supportive care. Will follow. STEFANIA TINOCO APRN Jan 17, 2017 12:25 HANG BARNARD MD Jan 17, 2017 18:58
[2017-01-17] MEDS ORDERED: CONTRAST GIVEN MC PRN (12:30)
[2017-01-17] MEDS ORDERED: IOHEXOL 300 MG/ML 75 ML VIAL IV ONE (12:30)
--- NOTE | 2017-01-17 12:53 | CONS ---
DATE OF CONSULTATION: 01/16/2017 REASON FOR CONSULTATION:. Medical management of shortness of breath. HISTORY OF PRESENT ILLNESS AND HOSPITAL COURSE: This patient is a 61-year-old female who underwent elective lumbar laminectomy of L2 and L3 and L3 and L4. Surgical course was uncomplicated, but postoperatively, patient began having increasing shortness of breath and tachycardia. The patient was evaluated by Cardiology with unremarkable echocardiography and minimal evidence of heart disease with congestive heart failure, but diastolic CHF was considered. The patient also has ongoing COPD and was treated with breathing treatments. She did improve, but oxygen status still remained low, and plans for transesophageal echo were made. Lasix was given. Lower extremity Dopplers were negative for blood clots. D-dimer was not diagnostic due to recent surgery. Followup CT angio was considered if continued hypoxia or O2 support is needed. The patient has not been on home oxygen in the past. PAST MEDICAL HISTORY: Significant for: 1. Chronic back pain. 2. COPD. 3. High cholesterol. 4. Osteoarthritis. 5. Hypertension. 6. Atrial fibrillation, for which the patient has been on Xarelto, but is no longer taking this medication. HOME MEDICATIONS: Include hydrochlorothiazide 12.5 mg daily, Lipitor 20 mg daily, diclofenac 75 mg b.i.d., cyclobenzaprine 10 mg at bedtime, vitamin D 1000 units daily. FAMILY HISTORY: Significant for mother who with complications of arthritis. The patient is not sure of actually cause of . Father with throat cancer. She has a brother who is alive with arthritis. PAST SURGICAL HISTORY: Significant for total abdominal hysterectomy and bilateral oophorectomy, tonsils and adenoidectomy, appendectomy and hernia repair in 2016. SOCIAL HISTORY: The patient continues to smoke. She does not use alcohol. She is and lives with her spouse. ALLERGIES: THE PATIENT EXHIBITS ALLERGIES TO PENICILLIN. REVIEW OF SYSTEMS: The patient was doing well except for ongoing back pain and leg weakness and most currently has had increased tachycardia and shortness of breath. She denies any bowel or bladder problems, nausea, vomiting or chest pain. PHYSICAL EXAMINATION: GENERAL: This is a moderately obese female, in no apparent distress on my exam. HEENT: Benign. NECK: Supple. CARDIAC: Regular rate and rhythm without murmur. LUNGS: Clear. ABDOMEN: Soft and nontender. EXTREMITIES: Showed 2+ pulses, with 1+ nonpitting type edema, equal bilaterally. NEUROLOGIC: Showed no unilateral findings. ASSESSMENT: 1. Supraventricular tachycardia. 2. Suspected diastolic congestive heart failure. 3. Chronic obstructive pulmonary disease. 4. Hypoxia. 5. History of hypertension. 6. Postop day #1 of lumbar laminectomy. PLAN: To proceed with cardiology consultation. Continue routine breathing treatments, obtain CT angio if symptoms did not improve. Proceed with six minute walk to evaluate for oxygen needs. Proceed with PT and OT modalities, transferring to halfway or rehab once stable. JARET WILL MD DR: LISA/jennifer JOB#: [id number] / [id number]
--- NOTE | 2017-01-17 13:30 | PDOC ---
PROGRESS NOTES Subjective Subjective POD #2 up in chair Left leg pain improved with surgery denies SOA currently Objective Objective Vital Signs Date Time Temp Pulse Resp B/P (MAP) Pulse Ox O2 Delivery O2 Flow Rate FiO2 01/17/17 10:19 22 93 Nasal Cannula 2.0 01/17/17 07:15 97.9 103 138/67 (90) 97.9 Intake and Output 01/18/17 06:59 Output Total 190 ml Balance -190 ml Output Urine Total 190 ml # Voids 1 Physical Exam General: Alert, Oriented X3, Cooperative MUSCULOSKELETAL: Other (ARAYA) Skin: Other (dressing C,D,I,flat) Plan Plan of Care continue PT/OT encouraged increased activity as tolerated may transfer to SNF when medically stable Comment Review of Relevant I have reviewed the following items sophie (where applicable) has been applied. Labs Laboratory Tests Test 01/16/17 10:50 01/17/17 08:58 Sodium Level 141 mmol/L (136-145) 141 mmol/L (136-145) Potassium Level 3.4 mmol/L (3.5-5.1) 3.2 mmol/L (3.5-5.1) Chloride Level 99 mmol/L (98-107) 101 mmol/L (98-107) Carbon Dioxide Level 33 mmol/L (21-32) 34 mmol/L (21-32) Anion Gap 9 (6-14) 6 (6-14) Blood Urea Nitrogen 23 mg/dL (7-20) 27 mg/dL (7-20) Creatinine 0.9 mg/dL (0.6-1.0) 0.8 mg/dL (0.6-1.0) Estimated GFR (Cockcroft-Gault) 63.9 73.2 Glucose Level 106 mg/dL (70-99) 110 mg/dL (70-99) Calcium Level 9.7 mg/dL (8.5-10.1) 8.9 mg/dL (8.5-10.1) Magnesium Level 2.0 mg/dL (1.8-2.4) 2.0 mg/dL (1.8-2.4) YH-Xyk-D-Type Natriuretic Peptide 658 pg/mL (0-124) White Blood Count 9.3 x10^3/uL (4.0-11.0) Red Blood Count 3.86 x10^6/uL (3.50-5.40) Hemoglobin 12.0 g/dL (12.0-15.5) Hematocrit 34.7 % (36.0-47.0) Mean Corpuscular Volume 90 fL (79-100) Mean Corpuscular Hemoglobin 31 pg (25-35) Mean Corpuscular Hemoglobin Concent 35 g/dL (31-37) Red Cell Distribution Width 13.1 % (11.5-14.5) Platelet Count 235 x10^3/uL (140-400) Neutrophils (%) (Auto) 61 % (31-73) Lymphocytes (%) (Auto) 27 % (24-48) Monocytes (%) (Auto) 10 % (0-9) Eosinophils (%) (Auto) 1 % (0-3) Basophils (%) (Auto) 1 % (0-3) Neutrophils # (Auto) 5.7 x10^3uL (1.8-7.7) Lymphocytes # (Auto) 2.6 x10^3/uL (1.0-4.8) Monocytes # (Auto) 0.9 x10^3/uL (0.0-1.1) Eosinophils # (Auto) 0.1 x10^3/uL (0.0-0.7) Basophils # (Auto) 0.0 x10^3/uL (0.0-0.2) BUN/Creatinine Ratio 34 (6-20) Total Bilirubin 0.5 mg/dL (0.2-1.0) Aspartate Amino Transf (AST/SGOT) 28 U/L (15-37) Alanine Aminotransferase (ALT/SGPT) 39 U/L (14-59) Alkaline Phosphatase 71 U/L (46-116) Total Protein 6.7 g/dL (6.4-8.2) Albumin 3.7 g/dL (3.4-5.0) Albumin/Globulin Ratio 1.2 (1.0-1.7) Thyroid Stimulating Hormone (TSH) 5.780 uIU/mL (0.358-3.74) Laboratory Tests Test 01/17/17 08:58 White Blood Count 9.3 x10^3/uL (4.0-11.0) Red Blood Count 3.86 x10^6/uL (3.50-5.40) Hemoglobin 12.0 g/dL (12.0-15.5) Hematocrit 34.7 % (36.0-47.0) Mean Corpuscular Volume 90 fL (79-100) Mean Corpuscular Hemoglobin 31 pg (25-35) Mean Corpuscular Hemoglobin Concent 35 g/dL (31-37) Red Cell Distribution Width 13.1 % (11.5-14.5) Platelet Count 235 x10^3/uL (140-400) Neutrophils (%) (Auto) 61 % (31-73) Lymphocytes (%) (Auto) 27 % (24-48) Monocytes (%) (Auto) 10 % (0-9) Eosinophils (%) (Auto) 1 % (0-3) Basophils (%) (Auto) 1 % (0-3) Neutrophils # (Auto) 5.7 x10^3uL (1.8-7.7) Lymphocytes # (Auto) 2.6 x10^3/uL (1.0-4.8) Monocytes # (Auto) 0.9 x10^3/uL (0.0-1.1) Eosinophils # (Auto) 0.1 x10^3/uL (0.0-0.7) Basophils # (Auto) 0.0 x10^3/uL (0.0-0.2) Sodium Level 141 mmol/L (136-145) Potassium Level 3.2 mmol/L (3.5-5.1) Chloride Level 101 mmol/L (98-107) Carbon Dioxide Level 34 mmol/L (21-32) Anion Gap 6 (6-14) Blood Urea Nitrogen 27 mg/dL (7-20) Creatinine 0.8 mg/dL (0.6-1.0) Estimated GFR (Cockcroft-Gault) 73.2 BUN/Creatinine Ratio 34 (6-20) Glucose Level 110 mg/dL (70-99) Calcium Level 8.9 mg/dL (8.5-10.1) Magnesium Level 2.0 mg/dL (1.8-2.4) Total Bilirubin 0.5 mg/dL (0.2-1.0) Aspartate Amino Transf (AST/SGOT) 28 U/L (15-37) Alanine Aminotransferase (ALT/SGPT) 39 U/L (14-59) Alkaline Phosphatase 71 U/L (46-116) Total Protein 6.7 g/dL (6.4-8.2) Albumin 3.7 g/dL (3.4-5.0) Albumin/Globulin Ratio 1.2 (1.0-1.7) Thyroid Stimulating Hormone (TSH) 5.780 uIU/mL (0.358-3.74) Medications Current Medications Ondansetron HCl (Zofran) 4 mg PRN Q6HRS PRN IV NAUSEA/VOMITING; Start 01/15/17 at 07:00; Stop 01/16/17 at 06:59; Status DC Fentanyl Citrate (Fentanyl 2ml Vial) 25 mcg PRN Q5MIN PRN IV MILD PAIN Last administered on 01/15/17 13:57; Start 01/15/17 at 07:00; Stop 01/16/17 at 06: 59; Status DC Fentanyl Citrate (Fentanyl 2ml Vial) 50 mcg PRN Q5MIN PRN IV MODERATE PAIN Last administered on 01/15/17 12:27; Start 01/15/17 at 07:00; Stop 01/16/17 at 06:59; Status DC Morphine Sulfate 1 mg PRN Q10MIN PRN IV SEVERE PAIN; Start 01/15/17 at 07:00; Stop 01/16/17 at 06:59; Status DC Ringer's Solution 1,000 ml @ 30 mls/hr Q24H IV Last administered on 01/15/17 08:04; Start 01/15/17 at 07:00; Stop 01/15/17 at 18:59; Status DC Lidocaine HCl (Xylocaine-Mpf 1% Vial) 2 ml PRN 1X PRN ID PRIOR TO IV START; Start 01/15/17 at 07:00; Stop 01/16/17 at 06:59; Status DC Hydromorphone HCl (Dilaudid) 0.5 mg PRN Q10MIN PRN IV SEV PAIN, Second choice; Start 01/15/17 at 07:00; Stop 01/16/17 at 06:59; Status DC Prochlorperazine Edisylate (Compazine) 5 mg PACU PRN PRN IV NAUSEA, MRX1; Start 01/15/17 at 07:00; Stop 01/16/17 at 06:59; Status DC Vancomycin HCl 250 ml @ 250 mls/hr 1X PREOP PRN IV PRIOR TO SURGERY Last administered on 01/15/17 09:00; Start 01/15/17 at 08:00 Bacitracin 92953 unit/Sodium Chloride 1,000 ml @ 1,000 mls/hr 1X PERIOP ONCE IRR Last administered on 01/15/17 09:46; Start 01/15/17 at 06:00; Stop at 06:59; Status DC Gelatin (Gelfoam Size 100) 1 each STK-MED ONCE .ROUTE Last administered on 09:46; Start 01/15/17 at 06:05; Stop 01/15/17 at 07:05; Status DC Ketorolac Tromethamine (Toradol For Or Only) 60 mg STK-MED ONCE .ROUTE Last administered on 01/15/17 09:46; Start 01/15/17 at 06:05; Stop 01/15/17 at 07:06 ; Status DC Thrombin 20,000 unit STK-MED ONCE TP Last administered on 01/15/17 09:46; Start 01/15/17 at 06:06; Stop 01/15/17 at 07:06; Status DC Bupivacaine HCl/ Epinephrine Bitart (Sensorcain-Mpf Epi 0.5%-1:116319) 10 ml STK -MED ONCE .ROUTE Last administered on 01/15/17 09:46; Start 01/15/17 at 07:18 ; Stop 01/15/17 at 07:19; Status DC Bupivacaine HCl/ Epinephrine Bitart (Sensorcain-Mpf Epi 0.5%-1:206579) 10 ml STK -MED ONCE .ROUTE Last administered on 01/15/17 09:46; Start 01/15/17 at 06:42 ; Stop 01/15/17 at 07:43; Status DC Propofol 20 ml @ As Directed STK-MED ONCE IV ; Start 01/15/17 at 08:12; Stop at 08:13; Status DC Lidocaine HCl (Lidocaine Pf 2% Vial) 5 ml STK-MED ONCE .ROUTE ; Start 01/15/17 at 08:12; Stop 01/15/17 at 08:13; Status DC Dexamethasone Sodium Phosphate (Decadron) 20 mg STK-MED ONCE .ROUTE ; Start 01/15/17 at 08:12; Stop 01/15/17 at 08:13; Status DC Ondansetron HCl (Zofran) 4 mg STK-MED ONCE .ROUTE ; Start 01/15/17 at 08:12; Stop 01/15/17 at 08:13; Status DC Fentanyl Citrate (Fentanyl 2ml Vial) 100 mcg STK-MED ONCE .ROUTE ; Start at 08:12; Stop 01/15/17 at 08:13; Status DC Remifentanil HCl (Ultiva) 2 mg STK-MED ONCE IV ; Start 01/15/17 at 08:13; Stop 01/15/17 at 08:14; Status DC Propofol 50 ml @ As Directed STK-MED ONCE IV ; Start 01/15/17 at 08:13; Stop at 08:14; Status DC Phenylephrine HCl 1 mg STK-MED ONCE IV ; Start 01/15/17 at 08:13; Stop 01/15/17 at 08:14; Status DC Ephedrine Sulfate 50 mg STK-MED ONCE IV ; Start 01/15/17 at 08:13; Stop at 08:14; Status DC Rocuronium Wisdom (Zemuron) 100 mg STK-MED ONCE .ROUTE ; Start 01/15/17 at 08: 20; Stop 01/15/17 at 08:21; Status DC Glycopyrrolate (Robinul) 1 mg STK-MED ONCE .ROUTE ; Start 01/15/17 at 09:30; Stop 01/15/17 at 09:31; Status DC Neostigmine Methylsulfate (Bloxiverz) 10 mg STK-MED ONCE .ROUTE ; Start at 09:30; Stop 01/15/17 at 09:31; Status DC Propofol 50 ml @ As Directed STK-MED ONCE IV ; Start 01/15/17 at 09:49; Stop at 09:50; Status DC Desflurane (Suprane) 90 ml STK-MED ONCE IH ; Start 01/15/17 at 10:40; Stop 01/15 at 10:41; Status DC Atorvastatin Calcium (Lipitor) 20 mg HS PO Last administered on 01/16/17t 20: 39; Start 01/15/17 at 21:00 Vitamin D (Vitamin D3) 1,000 unit DAILY PO Last administered on 01/17/17 09: 17; Start 01/16/17 at 09:00 Cyclobenzaprine HCl (Flexeril) 10 mg TID PO Last administered on 01/16/17 08: 25; Start 01/15/17 at 21:00; Stop 01/16/17 at 10:00; Status DC Furosemide (Lasix) 40 mg DAILY PO Last administered on 01/17/17 09:17; Start 01/16/17 at 09:00 Acetaminophen/ Hydrocodone Bitart (Lortab 7.5/325) 1 tab PRN Q6HRS PRN PO PAIN Last administered on 01/17/17 09:19; Start 01/15/17 at 12:15 Diclofenac Sodium (Voltaren) 75 mg BID PO Last administered on 01/17/17 09:22 ; Start 01/15/17 at 21:00 Hydrochlorothiazide (Hydrodiuril) 25 mg DAILY PO Last administered on 09:17; Start 01/16/17 at 09:00; Stop 01/17/17 at 12:10; Status DC Acetaminophen (Tylenol) 650 mg PRN Q6HRS PRN PO MILD PAIN / TEMP; Start at 12:15 Al Hydroxide/Mg Hydroxide (Mylanta Plus Xs) 30 ml PRN Q3HRS PRN PO HEARTBURN / GAS; Start 01/15/17 at 12:15 Calcium Carbonate/ Glycine (Tums) 500 mg PRN Q3HRS PRN PO INDIGESTION; Start 01/15/17 at 12:15 Diphenhydramine HCl (Benadryl) 25 mg PRN Q6HRS PRN PO ITCHING; Start 01/15/17 at 12:15 Diphenhydramine HCl (Benadryl) 25 mg PRN Q6HRS PRN IV ITCHING; Start 01/15/17 at 12:15 Zolpidem Tartrate (Ambien) 5 mg PRN QHS PRN PO INSOMNIA, MAY REPEAT IN 1HR; Start 01/15/17 at 12:15 Sodium Chloride (Normal Saline Flush) 3 ml QSHIFT PRN IV AFTER MEDS AND BLOOD DRAWS; Start 01/15/17 at 12:15 Potassium Chloride/Dextrose/ Sod Cl 1,000 ml @ 75 mls/hr [id number] IV Last administered on 01/15/17 15:16; Start 01/15/17 at 14:00; Stop 01/16/17 at 07: 09; Status DC Methocarbamol (Robaxin) 750 mg TID PO ; Start 01/15/17 at 14:00; Status UNV Docusate Sodium (Colace) 100 mg BID PO Last administered on 01/17/17 09:17; Start 01/15/17 at 21:00 Magnesium Hydroxide (Milk Of Magnesia) 2,400 mg PRN Q12HR PRN PO CONSTIPATION; Start 01/15/17 at 12:15 Acetaminophen/ Hydrocodone Bitart (Lortab 7.5/325) 2 tab PRN Q6HRS PRN PO PAIN Last administered on 01/16/17 20:39; Start 01/15/17 at 12:15 Acetaminophen/ Hydrocodone Bitart (Lortab 7.5/325) 1 tab PRN Q6HRS PRN PO PAIN Last administered on 01/15/17 21:52; Start 01/15/17 at 12:15; Stop 01/17/17 at 10:04; Status DC Fentanyl Citrate (Fentanyl 2ml Vial) 50 mcg PRN Q2HR PRN IV PAIN Last administered on 01/16/17 01:54; Start 01/15/17 at 12:15 Fentanyl Citrate (Fentanyl 2ml Vial) 25 mcg PRN Q2HR PRN IV PAIN; Start at 12:15 Albumin Human 250 ml @ As Directed STK-MED ONCE IV ; Start 01/15/17 at 12:38; Stop 01/15/17 at 12:39; Status DC Albumin Human 500 ml @ 125 mls/hr 1X ONCE IV Last administered on 01/15/17 12:56; Start 01/15/17 at 12:45; Stop 01/15/17 at 16:44; Status DC Methocarbamol (Robaxin) 750 mg PRN TID PRN PO MUSCLE SPASMS Last administered on 01/17/17 09:17; Start 01/16/17 at 10:00 Albuterol Sulfate (Ventolin Neb Soln) 2.5 mg PRN Q4HRS PRN NEB SHORTNESS OF BREATH; Start 01/16/17 at 10:45 Furosemide (Lasix) 20 mg 1X ONCE IVP Last administered on 01/16/17 13:13; Start 01/16/17 at 11:30; Stop 01/16/17 at 11:31; Status DC Potassium Chloride (Klor-Con) 40 meq 1X ONCE PO Last administered on 12:10; Start 01/17/17 at 10:30; Stop 01/17/17 at 10:31; Status DC Iohexol (Omnipaque 300 Mg/ml) 75 ml 1X ONCE IV Last administered on 12:32; Start 01/17/17 at 12:30; Stop 01/17/17 at 12:31; Status DC Info (Do NOT chart on this entry -- for MONITORING) 1 each PRN DAILY PRN MC SEE COMMENTS; Start 01/17/17 at 12:30; Stop 01/19/17 at 12:29 Active Scripts Active Lasix (Furosemide) 40 Mg Tablet 1 Tab PO DAILY Reported Vitamin D3 (Cholecalciferol (Vitamin D3)) 1,000 Unit Tablet 1 Tab PO DAILY Hydrocodone-Apap 7.5-325 (Hydrocodone Bit/Acetaminophen) 1 Each Tablet 1 Tab PO PRN Q6HRS PRN Diclofenac Sodium 75 Mg Tablet.dr 1 Tab PO BID Atorvastatin Calcium 20 Mg Tablet 20 Mg PO HS Cyclobenzaprine Hcl 10 Mg Tablet 1 Tab PO TID Hydrochlorothiazide Tablet (Hydrochlorothiazide) 12.5 Mg Tablet 1 Tab PO DAILY Vitals/I & O Vital Sign - Last 24 Hours 01/16/17 01/16/17 01/16/17 01/16/17 13:45 14:57 19:10 20:00 Temp 98.0 97.7 98.0 97.7 Pulse 110 106 Resp 22 20 B/P (MAP) 122/57 (78) 127/59 (81) Pulse Ox 94 93 O2 Delivery Nasal Cannula Nasal Cannula Nasal Cannula Nasal Cannula O2 Flow Rate 2.0 2.0 2.0 2.0 01/16/17 01/16/17 01/16/17 01/17/17 20:39 21:39 23:10 03:10 Temp 97.9 97.8 97.9 97.8 Pulse 97 98 Resp 22 22 20 21 B/P (MAP) 122/61 (81) 110/53 (72) Pulse Ox 93 96 93 O2 Delivery Nasal Cannula Nasal Cannula Nasal Cannula Nasal Cannula O2 Flow Rate 2.0 2.0 2.0 2.0 01/17/17 01/17/17 01/17/17 01/17/17 03:22 07:15 08:11 09:19 Temp 97.9 97.9 Pulse 103 Resp 22 20 22 B/P (MAP) 138/67 (90) Pulse Ox 96 93 93 O2 Delivery Nasal Cannula Nasal Cannula Nasal Cannula Nasal Cannula O2 Flow Rate 2.0 2.0 2.0 2.0 01/17/17 10:19 Resp 22 Pulse Ox 93 O2 Delivery Nasal Cannula O2 Flow Rate 2.0 Intake and Output 01/17/17 01/17/17 01/18/17 14:59 22:59 06:59 Output Total 190 ml Balance -190 ml MECHELLE RUSSELL APRN Jan 17, 2017 13:30
--- NOTE | 2017-01-17 13:31 | RAD ---
CTA of the chest. 01/17/2017 Indication: [Shortness of breath and hypoxia Comparison study: [CTA of the chest] chest radiograph January 16, 2017 Technique: Multidetector CT imaging of the chest was performed following the administration of intravenous contrast. Multiple reconstructions including 3-D maximum intensity projection reconstructions were created on an independent workstation and reviewed. Findings: Heart size is normal. No significant pericardial effusion is identified. Motion limits evaluation of the ascending thoracic aorta. The thoracic aorta is otherwise grossly unremarkable in course and contour. Scattered small mediastinal lymph nodes are noted which are not pathologically enlarged by CT size criterion. Radiodense material noted in the stomach and distal esophagus uncertain etiology. Motion artifact also mildly limits evaluation of distal segmental and subsegmental pulmonary arteries in the lower lobes. No significant filling defects within the visualized central pulmonary arteries are identified. There is no pneumothorax. Emphysematous changes are noted throughout the lungs including apical scarring, more so on the right. Scattered calcified granulomata are noted throughout the lungs and mediastinum consistent with prior granulomatous disease. There is mild intralobular septal thickening. MIld interstitial edema may be present. There is mild dependent atelectasis the right lower lobe. No other focal infiltrate is identified. Limited visualization of the upper abdomen demonstrates no acute abnormalities. No acute osseous abnormality is not identified. Impression: 1. No evidence of acute pulmonary embolism is identified 2. Mild dependent atelectasis in the right lung base and possible very mild interstitial edema. 3. Emphysema Impression: No evidence of acute pulmonary embolism or other acute cardiopulmonary process. PQRS Compliance Statement: One or more of the following individualized dose reduction techniques were utilized for this examination: 1. Automated exposure control 2. Adjustment of the mA and/or kV according to patient size 3. Use of iterative reconstruction technique
--- NOTE | 2017-01-17 13:56 | PATHOLOGY ---
PATHOLOGY REPORT * * * * * * * * FINAL DIAGNOSIS: Segments of fibrocartilaginous, fibroadipose, and skeletal muscle tissue and bone, lumbar decompression: - Degenerative changes of fibrocartilaginous tissue. COMMENT: There is no evidence of an acute inflammatory process or malignancy. (JPM:mml; 01/17/2017) REPORT ELECTRONICALLY SIGNED BY: Ken Madrid M.D. DATE/TIME: 01/17/2017 13:55 * * * * * * * * GROSS PATHOLOGY: Received in formalin labeled "Pamela Barrientos, lumbar decompression," are multiple segments of adames rubbery and gritty tissue measuring 7.3 x 7.5 x 1.4 cm in aggregate dimensions, containing small fragments of bone. The tissue is submitted representatively in cassette A1, following decalcification. (TSD; 01/15/2017) INITIAL CPT CODE(S): A; 61206, 04545 Professional services [place] [place] [address] Technical services performed by [facility] at [address] [place] [address]. SPECIMEN(S) RECEIVED: A.Lumbar decompression CLINICAL HISTORY: Lumbar stenosis PATIENT: PAMELA BARRIENTOS /AGE: 5 1955 (Age: 61) PATIENT #: [id number] ALT CASE #: SPECIMEN COLLECTION DATE: 01/15/2017 SPECIMEN RECEIVED DATE: 01/15/2017 [facility] - [address] [place] [address] - PHONE: [phone] * * * END OF REPORT * * *
[2017-01-17 15:47] VITALS: BP 135/68
[2017-01-17 19:05] VITALS: BP 159/54
[2017-01-17] MEDS: ATORVASTATIN CALCIUM 20 MG TABLET PO SCH (19:51)
[2017-01-17 23:10] VITALS: BP 122/47
[2017-01-18 03:10] VITALS: BP 123/54
[2017-01-18] MEDS: METHOCARBAMOL 750 MG TABLET PO PRN (04:08)
[2017-01-18] MEDS: HYDROcodone/APAP 7.5/325MG 1 TAB TABLET PO PRN ×2 (05:05→13:08)
[2017-01-18 07:55] VITALS: BP 151/77
[2017-01-18] MEDS: CHOLECALCIFEROL (VITAMIN D3) 1,000 UNIT TABLET PO SCH (09:34)
[2017-01-18] MEDS: DICLOFENAC SODIUM 25 MG TABLET.DR PO SCH (09:34)
[2017-01-18] MEDS: FUROSEMIDE 40 MG TABLET. PO SCH (09:34)
[2017-01-18] MEDS: DOCUSATE SODIUM 100 MG CAPSULE. PO SCH (09:34)
[2017-01-18] MEDS ORDERED: BUDESONIDE 0.5 MG/2 ML NEBU. NEB SCH (10:00)
[2017-01-18 10:51] VITALS: BP 112/68
[2017-01-18] MEDS ORDERED: IPRATRPIUM/ALBUTEROL 0.5/2.5MG 3 ML NEBU. NEB SCH (12:00)
--- NOTE | 2017-01-18 12:10 | PDOC ---
STEFANIA TINOCO SERVICE OFFICER 01/18/17 1210: CARDIO Progress Notes Date and Time Date of Service 01/18/2017 Time of Evaluation 1200 Subjective Subjective: No Chest Pain, No Palpitations, No Dizziness, Other (feels better today with periods of wheezing) Vitals Vitals Vital Signs Date Time Temp Pulse Resp B/P (MAP) Pulse Ox O2 Delivery O2 Flow Rate FiO2 01/18/17 11:20 93 Room Air 01/18/17 10:51 97.7 99 20 112/68 (83) 97.7 01/18/17 05:05 2.0 Weight Weight [ ] Input and Output Intake and Output Intake and Output 01/19/17 07:00 Intake Total 560 ml Output Total 450 ml Balance 110 ml Intake Oral 560 ml Output Urine Total 450 ml # Voids 1 # Bowel Movements 1 Laboratory Labs Laboratory Tests Test 01/17/17 13:15 D-Dimer (Edith) 0.75 ug/mlFEU (0.00-0.50) Physical Exam HEENT: Neck Supple W Full Motion Chest: Symmetric LUNGS: Other (faint basilar crackles) Heart: S1S2, RRR (SR/ST) Abdomen: Soft N/T Extremities: No Calf Tenderness, Other (2+ bilateral LE pitting edema) Neurology: alert, oriented, follow commands Assessment Assessment 1. Sinus tachycardia: HR 90-110. Pulmonary contributing but possible inappropriate sinus tach. 2. Acute CHF with possible diastolic dysfunction: appears compensated. EF normal. 3. HTN: controlled 4. HLP 5. COPD/moderate pulmonary HTN: still has periods of wheezing 6. Leg edema: Likely venous insufficiency. No DVT 7. Lumbar stenosis: POD#3 laminectomy with good tolerance. 8. Subclinical hypothyroidism: TSH 5s 9. Urinary frequency: possible UTI? defer to PCP Recommendations 1. CTA negative for PE. COPD coverage per PCP 2. BMP, Mg. Continue with lasix. Will proceed with toprol 3. Continue with secondary prevention. Compression stockings. HANG BARNARD MD 01/18/17 5923: CARDIO Progress Notes Plan Plan Pt. seen and examined. Agree with above SENIOR PHYSICIAN note. She is persistently tachypneic with tachycardia. No P.E on ct scan, normal echo with no significant valvular disease. Her CT scan suggestive of COPD No clear cardiac sources. Supportive care. low dose toprol for now. Will follow peripherally. Pls call with questions. Thanks STEFANIA TINOCO APRN Jan 18, 2017 12:10 HANG BARNARD MD Jan 18, 2017 13:35
--- NOTE | 2017-01-18 12:49 | PDOC ---
PROGRESS NOTES Subjective Subjective Patient feeling better now off o2 passed 6 min walk. still with intermittent low o2 sats and some SVT Objective Objective Vital Signs Date Time Temp Pulse Resp B/P (MAP) Pulse Ox O2 Delivery O2 Flow Rate FiO2 01/18/17 11:20 93 Room Air 01/18/17 10:51 97.7 99 20 112/68 (83) 97.7 01/18/17 05:05 2.0 Intake and Output 01/19/17 07:00 Intake Total 560 ml Output Total 450 ml Balance 110 ml Intake Oral 560 ml Output Urine Total 450 ml # Voids 1 # Bowel Movements 1 Physical Exam Abdomen: Normal bowel sounds Heart: Regular rate General: Alert Lungs: Clear to auscultation Assessment Assessment 1. Supraventricular tachycardia. 2. Pulm HTN 3. Chronic obstructive pulmonary disease. 4. Hypoxia. 5. History of hypertension. 6. Postop day #2 of lumbar laminectomy. 7. Suspected diastolic congestive heart failure Plan Plan of Care Start Advair and Spiriva Card to give low dose Beta luis manuel transfer to SNU ok with me Comment Review of Relevant I have reviewed the following items sophie (where applicable) has been applied. Labs Laboratory Tests Test 01/17/17 08:58 01/17/17 13:15 White Blood Count 9.3 x10^3/uL (4.0-11.0) Red Blood Count 3.86 x10^6/uL (3.50-5.40) Hemoglobin 12.0 g/dL (12.0-15.5) Hematocrit 34.7 % (36.0-47.0) Mean Corpuscular Volume 90 fL (79-100) Mean Corpuscular Hemoglobin 31 pg (25-35) Mean Corpuscular Hemoglobin Concent 35 g/dL (31-37) Red Cell Distribution Width 13.1 % (11.5-14.5) Platelet Count 235 x10^3/uL (140-400) Neutrophils (%) (Auto) 61 % (31-73) Lymphocytes (%) (Auto) 27 % (24-48) Monocytes (%) (Auto) 10 % (0-9) Eosinophils (%) (Auto) 1 % (0-3) Basophils (%) (Auto) 1 % (0-3) Neutrophils # (Auto) 5.7 x10^3uL (1.8-7.7) Lymphocytes # (Auto) 2.6 x10^3/uL (1.0-4.8) Monocytes # (Auto) 0.9 x10^3/uL (0.0-1.1) Eosinophils # (Auto) 0.1 x10^3/uL (0.0-0.7) Basophils # (Auto) 0.0 x10^3/uL (0.0-0.2) Sodium Level 141 mmol/L (136-145) Potassium Level 3.2 mmol/L (3.5-5.1) Chloride Level 101 mmol/L (98-107) Carbon Dioxide Level 34 mmol/L (21-32) Anion Gap 6 (6-14) Blood Urea Nitrogen 27 mg/dL (7-20) Creatinine 0.8 mg/dL (0.6-1.0) Estimated GFR (Cockcroft-Gault) 73.2 BUN/Creatinine Ratio 34 (6-20) Glucose Level 110 mg/dL (70-99) Calcium Level 8.9 mg/dL (8.5-10.1) Magnesium Level 2.0 mg/dL (1.8-2.4) Total Bilirubin 0.5 mg/dL (0.2-1.0) Aspartate Amino Transf (AST/SGOT) 28 U/L (15-37) Alanine Aminotransferase (ALT/SGPT) 39 U/L (14-59) Alkaline Phosphatase 71 U/L (46-116) Total Protein 6.7 g/dL (6.4-8.2) Albumin 3.7 g/dL (3.4-5.0) Albumin/Globulin Ratio 1.2 (1.0-1.7) Thyroid Stimulating Hormone (TSH) 5.780 uIU/mL (0.358-3.74) D-Dimer (Edith) 0.75 ug/mlFEU (0.00-0.50) Laboratory Tests Test 01/17/17 13:15 D-Dimer (Edith) 0.75 ug/mlFEU (0.00-0.50) Medications Current Medications Ondansetron HCl (Zofran) 4 mg PRN Q6HRS PRN IV NAUSEA/VOMITING; Start 01/15/17 at 07:00; Stop 01/16/17 at 06:59; Status DC Fentanyl Citrate (Fentanyl 2ml Vial) 25 mcg PRN Q5MIN PRN IV MILD PAIN Last administered on 01/15/17 13:57; Start 01/15/17 at 07:00; Stop 01/16/17 at 06: 59; Status DC Fentanyl Citrate (Fentanyl 2ml Vial) 50 mcg PRN Q5MIN PRN IV MODERATE PAIN Last administered on 01/15/17 12:27; Start 01/15/17 at 07:00; Stop 01/16/17 at 06:59; Status DC Morphine Sulfate 1 mg PRN Q10MIN PRN IV SEVERE PAIN; Start 01/15/17 at 07:00; Stop 01/16/17 at 06:59; Status DC Ringer's Solution 1,000 ml @ 30 mls/hr Q24H IV Last administered on 01/15/17 08:04; Start 01/15/17 at 07:00; Stop 01/15/17 at 18:59; Status DC Lidocaine HCl (Xylocaine-Mpf 1% Vial) 2 ml PRN 1X PRN ID PRIOR TO IV START; Start 01/15/17 at 07:00; Stop 01/16/17 at 06:59; Status DC Hydromorphone HCl (Dilaudid) 0.5 mg PRN Q10MIN PRN IV SEV PAIN, Second choice; Start 01/15/17 at 07:00; Stop 01/16/17 at 06:59; Status DC Prochlorperazine Edisylate (Compazine) 5 mg PACU PRN PRN IV NAUSEA, MRX1; Start 01/15/17 at 07:00; Stop 01/16/17 at 06:59; Status DC Vancomycin HCl 250 ml @ 250 mls/hr 1X PREOP PRN IV PRIOR TO SURGERY Last administered on 01/15/17 09:00; Start 01/15/17 at 08:00; Stop 01/18/17 at 09: 09; Status DC Bacitracin 50240 unit/Sodium Chloride 1,000 ml @ 1,000 mls/hr 1X PERIOP ONCE IRR Last administered on 01/15/17 09:46; Start 01/15/17 at 06:00; Stop at 06:59; Status DC Gelatin (Gelfoam Size 100) 1 each STK-MED ONCE .ROUTE Last administered on 09:46; Start 01/15/17 at 06:05; Stop 01/15/17 at 07:05; Status DC Ketorolac Tromethamine (Toradol For Or Only) 60 mg STK-MED ONCE .ROUTE Last administered on 01/15/17 09:46; Start 01/15/17 at 06:05; Stop 01/15/17 at 07:06 ; Status DC Thrombin 20,000 unit STK-MED ONCE TP Last administered on 01/15/17 09:46; Start 01/15/17 at 06:06; Stop 01/15/17 at 07:06; Status DC Bupivacaine HCl/ Epinephrine Bitart (Sensorcain-Mpf Epi 0.5%-1:884100) 10 ml STK -MED ONCE .ROUTE Last administered on 01/15/17 09:46; Start 01/15/17 at 07:18 ; Stop 01/15/17 at 07:19; Status DC Bupivacaine HCl/ Epinephrine Bitart (Sensorcain-Mpf Epi 0.5%-1:705312) 10 ml STK -MED ONCE .ROUTE Last administered on 01/15/17 09:46; Start 01/15/17 at 06:42 ; Stop 01/15/17 at 07:43; Status DC Propofol 20 ml @ As Directed STK-MED ONCE IV ; Start 01/15/17 at 08:12; Stop at 08:13; Status DC Lidocaine HCl (Lidocaine Pf 2% Vial) 5 ml STK-MED ONCE .ROUTE ; Start 01/15/17 at 08:12; Stop 01/15/17 at 08:13; Status DC Dexamethasone Sodium Phosphate (Decadron) 20 mg STK-MED ONCE .ROUTE ; Start 01/15/17 at 08:12; Stop 01/15/17 at 08:13; Status DC Ondansetron HCl (Zofran) 4 mg STK-MED ONCE .ROUTE ; Start 01/15/17 at 08:12; Stop 01/15/17 at 08:13; Status DC Fentanyl Citrate (Fentanyl 2ml Vial) 100 mcg STK-MED ONCE .ROUTE ; Start at 08:12; Stop 01/15/17 at 08:13; Status DC Remifentanil HCl (Ultiva) 2 mg STK-MED ONCE IV ; Start 01/15/17 at 08:13; Stop 01/15/17 at 08:14; Status DC Propofol 50 ml @ As Directed STK-MED ONCE IV ; Start 01/15/17 at 08:13; Stop at 08:14; Status DC Phenylephrine HCl 1 mg STK-MED ONCE IV ; Start 01/15/17 at 08:13; Stop 01/15/17 at 08:14; Status DC Ephedrine Sulfate 50 mg STK-MED ONCE IV ; Start 01/15/17 at 08:13; Stop at 08:14; Status DC Rocuronium [place] (Zemuron) 100 mg STK-MED ONCE .ROUTE ; Start 01/15/17 at 08: 20; Stop 01/15/17 at 08:21; Status DC Glycopyrrolate (Robinul) 1 mg STK-MED ONCE .ROUTE ; Start 01/15/17 at 09:30; Stop 01/15/17 at 09:31; Status DC Neostigmine Methylsulfate (Bloxiverz) 10 mg STK-MED ONCE .ROUTE ; Start at 09:30; Stop 01/15/17 at 09:31; Status DC Propofol 50 ml @ As Directed STK-MED ONCE IV ; Start 01/15/17 at 09:49; Stop at 09:50; Status DC Desflurane (Suprane) 90 ml STK-MED ONCE IH ; Start 01/15/17 at 10:40; Stop 01/15 at 10:41; Status DC Atorvastatin Calcium (Lipitor) 20 mg HS PO Last administered on 01/17/17 19: 51; Start 01/15/17 at 21:00 Vitamin D (Vitamin D3) 1,000 unit DAILY PO Last administered on 01/18/17 09: 34; Start 01/16/17 at 09:00 Cyclobenzaprine HCl (Flexeril) 10 mg TID PO Last administered on 01/16/17 08: 25; Start 01/15/17 at 21:00; Stop 01/16/17 at 10:00; Status DC Furosemide (Lasix) 40 mg DAILY PO Last administered on 01/18/17 09:34; Start 01/16/17 at 09:00 Acetaminophen/ Hydrocodone Bitart (Lortab 7.5/325) 1 tab PRN Q6HRS PRN PO PAIN Last administered on 01/17/17 09:19; Start 01/15/17 at 12:15 Diclofenac Sodium (Voltaren) 75 mg BID PO Last administered on 01/18/17 09:34 ; Start 01/15/17 at 21:00 Hydrochlorothiazide (Hydrodiuril) 25 mg DAILY PO Last administered on 09:17; Start 01/16/17 at 09:00; Stop 01/17/17 at 12:10; Status DC Acetaminophen (Tylenol) 650 mg PRN Q6HRS PRN PO MILD PAIN / TEMP; Start at 12:15 Al Hydroxide/Mg Hydroxide (Mylanta Plus Xs) 30 ml PRN Q3HRS PRN PO HEARTBURN / GAS; Start 01/15/17 at 12:15 Calcium Carbonate/ Glycine (Tums) 500 mg PRN Q3HRS PRN PO INDIGESTION; Start 01/15/17 at 12:15 Diphenhydramine HCl (Benadryl) 25 mg PRN Q6HRS PRN PO ITCHING; Start 01/15/17 at 12:15 Diphenhydramine HCl (Benadryl) 25 mg PRN Q6HRS PRN IV ITCHING; Start 01/15/17 at 12:15 Zolpidem Tartrate (Ambien) 5 mg PRN QHS PRN PO INSOMNIA, MAY REPEAT IN 1HR; Start 01/15/17 at 12:15 Sodium Chloride (Normal Saline Flush) 3 ml QSHIFT PRN IV AFTER MEDS AND BLOOD DRAWS; Start 01/15/17 at 12:15 Potassium Chloride/Dextrose/ Sod Cl 1,000 ml @ 75 mls/hr [id number] IV Last administered on 01/15/17 15:16; Start 01/15/17 at 14:00; Stop 01/16/17 at 07: 09; Status DC Methocarbamol (Robaxin) 750 mg TID PO ; Start 01/15/17 at 14:00; Status UNV Docusate Sodium (Colace) 100 mg BID PO Last administered on 01/18/17 09:34; Start 01/15/17 at 21:00 Magnesium Hydroxide (Milk Of Magnesia) 2,400 mg PRN Q12HR PRN PO CONSTIPATION; Start 01/15/17 at 12:15 Acetaminophen/ Hydrocodone Bitart (Lortab 7.5/325) 2 tab PRN Q6HRS PRN PO PAIN Last administered on 01/18/17 05:05; Start 01/15/17 at 12:15 Acetaminophen/ Hydrocodone Bitart (Lortab 7.5/325) 1 tab PRN Q6HRS PRN PO PAIN Last administered on 01/15/17 21:52; Start 01/15/17 at 12:15; Stop 01/17/17 at 10:04; Status DC Fentanyl Citrate (Fentanyl 2ml Vial) 50 mcg PRN Q2HR PRN IV PAIN Last administered on 01/16/17 01:54; Start 01/15/17 at 12:15 Fentanyl Citrate (Fentanyl 2ml Vial) 25 mcg PRN Q2HR PRN IV PAIN; Start at 12:15 Albumin Human 250 ml @ As Directed STK-MED ONCE IV ; Start 01/15/17 at 12:38; Stop 01/15/17 at 12:39; Status DC Albumin Human 500 ml @ 125 mls/hr 1X ONCE IV Last administered on 01/15/17 12:56; Start 01/15/17 at 12:45; Stop 01/15/17 at 16:44; Status DC Methocarbamol (Robaxin) 750 mg PRN TID PRN PO MUSCLE SPASMS Last administered on 01/18/17 04:08; Start 01/16/17 at 10:00 Albuterol Sulfate (Ventolin Neb Soln) 2.5 mg PRN Q4HRS PRN NEB SHORTNESS OF BREATH; Start 01/16/17 at 10:45 Furosemide (Lasix) 20 mg 1X ONCE IVP Last administered on 01/16/17 13:13; Start 01/16/17 at 11:30; Stop 01/16/17 at 11:31; Status DC Potassium Chloride (Klor-Con) 40 meq 1X ONCE PO Last administered on 12:10; Start 01/17/17 at 10:30; Stop 01/17/17 at 10:31; Status DC Iohexol (Omnipaque 300 Mg/ml) 75 ml 1X ONCE IV Last administered on 12:32; Start 01/17/17 at 12:30; Stop 01/17/17 at 12:31; Status DC Info (Do NOT chart on this entry -- for MONITORING) 1 each PRN DAILY PRN MC SEE COMMENTS; Start 01/17/17 at 12:30; Stop 01/19/17 at 12:29 Albuterol/ Ipratropium (Duoneb) 3 ml RTQID NEB Last administered on 01/18/17 11:19; Start 01/18/17 at 12:00 Budesonide (Pulmicort) 0.5 mg RTBID NEB Last administered on 01/18/17 11:19; Start 01/18/17 at 10:00 Metoprolol Succinate (Toprol Xl) 25 mg DAILY PO ; Start 01/18/17 at 13:00 Active Scripts Active Lasix (Furosemide) 40 Mg Tablet 1 Tab PO DAILY Reported Vitamin D3 (Cholecalciferol (Vitamin D3)) 1,000 Unit Tablet 1 Tab PO DAILY Hydrocodone-Apap 7.5-325 (Hydrocodone Bit/Acetaminophen) 1 Each Tablet 1 Tab PO PRN Q6HRS PRN Diclofenac Sodium 75 Mg Tablet.dr 1 Tab PO BID Atorvastatin Calcium 20 Mg Tablet 20 Mg PO HS Cyclobenzaprine Hcl 10 Mg Tablet 1 Tab PO TID Hydrochlorothiazide Tablet (Hydrochlorothiazide) 12.5 Mg Tablet 1 Tab PO DAILY Vitals/I & O Vital Sign - Last 24 Hours 01/17/17 01/17/17 01/17/17 01/17/17 15:47 16:38 19:05 20:00 Temp 97.8 97.4 97.8 97.4 Pulse 98 105 Resp 20 19 B/P (MAP) 135/68 (90) 159/54 (89) Pulse Ox 95 91 O2 Delivery Nasal Cannula Room Air Nasal Cannula Nasal Cannula O2 Flow Rate 2.0 2.0 2.0 01/17/17 01/17/17 01/17/17 01/18/17 22:38 23:10 23:38 03:10 Temp 98.0 97.9 98.0 97.9 Pulse 102 96 Resp 22 18 18 B/P (MAP) 122/47 (72) 123/54 (77) Pulse Ox 91 93 91 93 O2 Delivery Room Air Room Air Room Air 01/18/17 01/18/17 01/18/17 01/18/17 05:05 06:05 07:55 08:00 Temp 98.0 98.0 Pulse 99 Resp 20 20 20 B/P (MAP) 151/77 (101) Pulse Ox 93 91 O2 Delivery Room Air Room Air Room Air Room Air O2 Flow Rate 2.0 01/18/17 01/18/17 10:51 11:20 Temp 97.7 97.7 Pulse 99 Resp 20 B/P (MAP) 112/68 (83) Pulse Ox 92 93 O2 Delivery Room Air Room Air Intake and Output 01/18/17 01/18/17 01/19/17 15:00 23:00 07:00 Intake Total 560 ml Output Total 450 ml Balance 110 ml JARET WILL MD Jan 18, 2017 12:49
[2017-01-18] MEDS ORDERED: METOPROLOL SUCC 24HR ER 25 MG TAB.ER.24H. PO SCH (13:00)
[2017-01-18 13:09] VITALS: BP 112/68
--- NOTE | 2017-01-18 14:05 | PDOC ---
PROGRESS NOTES Subjective Subjective resting in bed some muscle spasms in lower back Objective Objective Vital Signs Date Time Temp Pulse Resp B/P (MAP) Pulse Ox O2 Delivery O2 Flow Rate FiO2 01/18/17 13:09 122 112/68 01/18/17 13:08 Room Air 01/18/17 11:20 93 01/18/17 10:51 97.7 20 97.7 01/18/17 05:05 2.0 Intake and Output 01/19/17 07:00 Intake Total 660 ml Output Total 550 ml Balance 110 ml Intake Oral 660 ml Output Urine Total 550 ml # Voids 1 # Bowel Movements 1 Physical Exam General: Alert, Oriented X3, Cooperative, No acute distress MUSCULOSKELETAL: Other (ARAYA) Neuro: Normal speech Psych/Mental Status: Mental status NL Skin: Other (dressing changed, dry, flat, healing well) Plan Plan of Care encouraged increased activity as tolerated PT/ OT SNF when ok with others Comment Review of Relevant I have reviewed the following items sophie (where applicable) has been applied. Labs Laboratory Tests Test 01/17/17 08:58 01/17/17 13:15 White Blood Count 9.3 x10^3/uL (4.0-11.0) Red Blood Count 3.86 x10^6/uL (3.50-5.40) Hemoglobin 12.0 g/dL (12.0-15.5) Hematocrit 34.7 % (36.0-47.0) Mean Corpuscular Volume 90 fL (79-100) Mean Corpuscular Hemoglobin 31 pg (25-35) Mean Corpuscular Hemoglobin Concent 35 g/dL (31-37) Red Cell Distribution Width 13.1 % (11.5-14.5) Platelet Count 235 x10^3/uL (140-400) Neutrophils (%) (Auto) 61 % (31-73) Lymphocytes (%) (Auto) 27 % (24-48) Monocytes (%) (Auto) 10 % (0-9) Eosinophils (%) (Auto) 1 % (0-3) Basophils (%) (Auto) 1 % (0-3) Neutrophils # (Auto) 5.7 x10^3uL (1.8-7.7) Lymphocytes # (Auto) 2.6 x10^3/uL (1.0-4.8) Monocytes # (Auto) 0.9 x10^3/uL (0.0-1.1) Eosinophils # (Auto) 0.1 x10^3/uL (0.0-0.7) Basophils # (Auto) 0.0 x10^3/uL (0.0-0.2) Sodium Level 141 mmol/L (136-145) Potassium Level 3.2 mmol/L (3.5-5.1) Chloride Level 101 mmol/L (98-107) Carbon Dioxide Level 34 mmol/L (21-32) Anion Gap 6 (6-14) Blood Urea Nitrogen 27 mg/dL (7-20) Creatinine 0.8 mg/dL (0.6-1.0) Estimated GFR (Cockcroft-Gault) 73.2 BUN/Creatinine Ratio 34 (6-20) Glucose Level 110 mg/dL (70-99) Calcium Level 8.9 mg/dL (8.5-10.1) Magnesium Level 2.0 mg/dL (1.8-2.4) Total Bilirubin 0.5 mg/dL (0.2-1.0) Aspartate Amino Transf (AST/SGOT) 28 U/L (15-37) Alanine Aminotransferase (ALT/SGPT) 39 U/L (14-59) Alkaline Phosphatase 71 U/L (46-116) Total Protein 6.7 g/dL (6.4-8.2) Albumin 3.7 g/dL (3.4-5.0) Albumin/Globulin Ratio 1.2 (1.0-1.7) Thyroid Stimulating Hormone (TSH) 5.780 uIU/mL (0.358-3.74) D-Dimer (Edith) 0.75 ug/mlFEU (0.00-0.50) Medications Current Medications Ondansetron HCl (Zofran) 4 mg PRN Q6HRS PRN IV NAUSEA/VOMITING; Start 01/15/17 at 07:00; Stop 01/16/17 at 06:59; Status DC Fentanyl Citrate (Fentanyl 2ml Vial) 25 mcg PRN Q5MIN PRN IV MILD PAIN Last administered on 01/15/17t 13:57; Start 01/15/17 at 07:00; Stop 01/16/17 at 06: 59; Status DC Fentanyl Citrate (Fentanyl 2ml Vial) 50 mcg PRN Q5MIN PRN IV MODERATE PAIN Last administered on 01/15/17 12:27; Start 01/15/17 at 07:00; Stop 01/16/17 at 06:59; Status DC Morphine Sulfate 1 mg PRN Q10MIN PRN IV SEVERE PAIN; Start 01/15/17 at 07:00; Stop 01/16/17 at 06:59; Status DC Ringer's Solution 1,000 ml @ 30 mls/hr Q24H IV Last administered on 01/15/17 08:04; Start 01/15/17 at 07:00; Stop 01/15/17 at 18:59; Status DC Lidocaine HCl (Xylocaine-Mpf 1% Vial) 2 ml PRN 1X PRN ID PRIOR TO IV START; Start 01/15/17 at 07:00; Stop 01/16/17 at 06:59; Status DC Hydromorphone HCl (Dilaudid) 0.5 mg PRN Q10MIN PRN IV SEV PAIN, Second choice; Start 01/15/17 at 07:00; Stop 01/16/17 at 06:59; Status DC Prochlorperazine Edisylate (Compazine) 5 mg PACU PRN PRN IV NAUSEA, MRX1; Start 01/15/17 at 07:00; Stop 01/16/17 at 06:59; Status DC Vancomycin HCl 250 ml @ 250 mls/hr 1X PREOP PRN IV PRIOR TO SURGERY Last administered on 01/15/17 09:00; Start 01/15/17 at 08:00; Stop 01/18/17 at 09: 09; Status DC Bacitracin 46406 unit/Sodium Chloride 1,000 ml @ 1,000 mls/hr 1X PERIOP ONCE IRR Last administered on 01/15/17 09:46; Start 01/15/17 at 06:00; Stop at 06:59; Status DC Gelatin (Gelfoam Size 100) 1 each STK-MED ONCE .ROUTE Last administered on 09:46; Start 01/15/17 at 06:05; Stop 01/15/17 at 07:05; Status DC Ketorolac Tromethamine (Toradol For Or Only) 60 mg STK-MED ONCE .ROUTE Last administered on 01/15/17 09:46; Start 01/15/17 at 06:05; Stop 01/15/17 at 07:06 ; Status DC Thrombin 20,000 unit STK-MED ONCE TP Last administered on 01/15/17 09:46; Start 01/15/17 at 06:06; Stop 01/15/17 at 07:06; Status DC Bupivacaine HCl/ Epinephrine Bitart (Sensorcain-Mpf Epi 0.5%-1:993751) 10 ml STK -MED ONCE .ROUTE Last administered on 01/15/17 09:46; Start 01/15/17 at 07:18 ; Stop 01/15/17 at 07:19; Status DC Bupivacaine HCl/ Epinephrine Bitart (Sensorcain-Mpf Epi 0.5%-1:777779) 10 ml STK -MED ONCE .ROUTE Last administered on 01/15/17 09:46; Start 01/15/17 at 06:42 ; Stop 01/15/17 at 07:43; Status DC Propofol 20 ml @ As Directed STK-MED ONCE IV ; Start 01/15/17 at 08:12; Stop at 08:13; Status DC Lidocaine HCl (Lidocaine Pf 2% Vial) 5 ml STK-MED ONCE .ROUTE ; Start 01/15/17 at 08:12; Stop 01/15/17 at 08:13; Status DC Dexamethasone Sodium Phosphate (Decadron) 20 mg STK-MED ONCE .ROUTE ; Start 01/15/17 at 08:12; Stop 01/15/17 at 08:13; Status DC Ondansetron HCl (Zofran) 4 mg STK-MED ONCE .ROUTE ; Start 01/15/17 at 08:12; Stop 01/15/17 at 08:13; Status DC Fentanyl Citrate (Fentanyl 2ml Vial) 100 mcg STK-MED ONCE .ROUTE ; Start at 08:12; Stop 01/15/17 at 08:13; Status DC Remifentanil HCl (Ultiva) 2 mg STK-MED ONCE IV ; Start 01/15/17 at 08:13; Stop 01/15/17 at 08:14; Status DC Propofol 50 ml @ As Directed STK-MED ONCE IV ; Start 01/15/17 at 08:13; Stop at 08:14; Status DC Phenylephrine HCl 1 mg STK-MED ONCE IV ; Start 01/15/17 at 08:13; Stop 01/15/17 at 08:14; Status DC Ephedrine Sulfate 50 mg STK-MED ONCE IV ; Start 01/15/17 at 08:13; Stop at 08:14; Status DC Rocuronium [place] (Zemuron) 100 mg STK-MED ONCE .ROUTE ; Start 01/15/17 at 08: 20; Stop 01/15/17 at 08:21; Status DC Glycopyrrolate (Robinul) 1 mg STK-MED ONCE .ROUTE ; Start 01/15/17 at 09:30; Stop 01/15/17 at 09:31; Status DC Neostigmine Methylsulfate (Bloxiverz) 10 mg STK-MED ONCE .ROUTE ; Start at 09:30; Stop 01/15/17 at 09:31; Status DC Propofol 50 ml @ As Directed STK-MED ONCE IV ; Start 01/15/17 at 09:49; Stop at 09:50; Status DC Desflurane (Suprane) 90 ml STK-MED ONCE IH ; Start 01/15/17 at 10:40; Stop 01/15 at 10:41; Status DC Atorvastatin Calcium (Lipitor) 20 mg HS PO Last administered on 01/17/17 19: 51; Start 01/15/17 at 21:00 Vitamin D (Vitamin D3) 1,000 unit DAILY PO Last administered on 01/18/17 09: 34; Start 01/16/17 at 09:00 Cyclobenzaprine HCl (Flexeril) 10 mg TID PO Last administered on 01/16/17 08: 25; Start 01/15/17 at 21:00; Stop 01/16/17 at 10:00; Status DC Furosemide (Lasix) 40 mg DAILY PO Last administered on 01/18/17 09:34; Start 01/16/17 at 09:00 Acetaminophen/ Hydrocodone Bitart (Lortab 7.5/325) 1 tab PRN Q6HRS PRN PO PAIN Last administered on 01/17/17 09:19; Start 01/15/17 at 12:15 Diclofenac Sodium (Voltaren) 75 mg BID PO Last administered on 01/18/17 09:34 ; Start 01/15/17 at 21:00 Hydrochlorothiazide (Hydrodiuril) 25 mg DAILY PO Last administered on 09:17; Start 01/16/17 at 09:00; Stop 01/17/17 at 12:10; Status DC Acetaminophen (Tylenol) 650 mg PRN Q6HRS PRN PO MILD PAIN / TEMP; Start at 12:15 Al Hydroxide/Mg Hydroxide (Mylanta Plus Xs) 30 ml PRN Q3HRS PRN PO HEARTBURN / GAS; Start 01/15/17 at 12:15 Calcium Carbonate/ Glycine (Tums) 500 mg PRN Q3HRS PRN PO INDIGESTION; Start 01/15/17 at 12:15 Diphenhydramine HCl (Benadryl) 25 mg PRN Q6HRS PRN PO ITCHING; Start 01/15/17 at 12:15 Diphenhydramine HCl (Benadryl) 25 mg PRN Q6HRS PRN IV ITCHING; Start 01/15/17 at 12:15 Zolpidem Tartrate (Ambien) 5 mg PRN QHS PRN PO INSOMNIA, MAY REPEAT IN 1HR; Start 01/15/17 at 12:15 Sodium Chloride (Normal Saline Flush) 3 ml QSHIFT PRN IV AFTER MEDS AND BLOOD DRAWS; Start 01/15/17 at 12:15 Potassium Chloride/Dextrose/ Sod Cl 1,000 ml @ 75 mls/hr [id number] IV Last administered on 01/15/17 15:16; Start 01/15/17 at 14:00; Stop 01/16/17 at 07: 09; Status DC Methocarbamol (Robaxin) 750 mg TID PO ; Start 01/15/17 at 14:00; Status UNV Docusate Sodium (Colace) 100 mg BID PO Last administered on 01/18/17 09:34; Start 01/15/17 at 21:00 Magnesium Hydroxide (Milk Of Magnesia) 2,400 mg PRN Q12HR PRN PO CONSTIPATION; Start 01/15/17 at 12:15 Acetaminophen/ Hydrocodone Bitart (Lortab 7.5/325) 2 tab PRN Q6HRS PRN PO PAIN Last administered on 01/18/17 13:08; Start 01/15/17 at 12:15 Acetaminophen/ Hydrocodone Bitart (Lortab 7.5/325) 1 tab PRN Q6HRS PRN PO PAIN Last administered on 01/15/17 21:52; Start 01/15/17 at 12:15; Stop 01/17/17 at 10:04; Status DC Fentanyl Citrate (Fentanyl 2ml Vial) 50 mcg PRN Q2HR PRN IV PAIN Last administered on 01/16/17 01:54; Start 01/15/17 at 12:15 Fentanyl Citrate (Fentanyl 2ml Vial) 25 mcg PRN Q2HR PRN IV PAIN; Start at 12:15 Albumin Human 250 ml @ As Directed STK-MED ONCE IV ; Start 01/15/17 at 12:38; Stop 01/15/17 at 12:39; Status DC Albumin Human 500 ml @ 125 mls/hr 1X ONCE IV Last administered on 01/15/17 12:56; Start 01/15/17 at 12:45; Stop 01/15/17 at 16:44; Status DC Methocarbamol (Robaxin) 750 mg PRN TID PRN PO MUSCLE SPASMS Last administered on 01/18/17 04:08; Start 01/16/17 at 10:00 Albuterol Sulfate (Ventolin Neb Soln) 2.5 mg PRN Q4HRS PRN NEB SHORTNESS OF BREATH; Start 01/16/17 at 10:45 Furosemide (Lasix) 20 mg 1X ONCE IVP Last administered on 01/16/17 13:13; Start 01/16/17 at 11:30; Stop 01/16/17 at 11:31; Status DC Potassium Chloride (Klor-Con) 40 meq 1X ONCE PO Last administered on 12:10; Start 01/17/17 at 10:30; Stop 01/17/17 at 10:31; Status DC Iohexol (Omnipaque 300 Mg/ml) 75 ml 1X ONCE IV Last administered on 12:32; Start 01/17/17 at 12:30; Stop 01/17/17 at 12:31; Status DC Info (Do NOT chart on this entry -- for MONITORING) 1 each PRN DAILY PRN MC SEE COMMENTS; Start 01/17/17 at 12:30; Stop 01/19/17 at 12:29 Albuterol/ Ipratropium (Duoneb) 3 ml RTQID NEB Last administered on 01/18/17 11:19; Start 01/18/17 at 12:00 Budesonide (Pulmicort) 0.5 mg RTBID NEB Last administered on 01/18/17 11:19; Start 01/18/17 at 10:00 Metoprolol Succinate (Toprol Xl) 25 mg DAILY PO Last administered on 13:09; Start 01/18/17 at 13:00 Active Scripts Active Lasix (Furosemide) 40 Mg Tablet 1 Tab PO DAILY Reported Vitamin D3 (Cholecalciferol (Vitamin D3)) 1,000 Unit Tablet 1 Tab PO DAILY Hydrocodone-Apap 7.5-325 (Hydrocodone Bit/Acetaminophen) 1 Each Tablet 1 Tab PO PRN Q6HRS PRN Diclofenac Sodium 75 Mg Tablet.dr 1 Tab PO BID Atorvastatin Calcium 20 Mg Tablet 20 Mg PO HS Cyclobenzaprine Hcl 10 Mg Tablet 1 Tab PO TID Hydrochlorothiazide Tablet (Hydrochlorothiazide) 12.5 Mg Tablet 1 Tab PO DAILY Vitals/I & O Vital Sign - Last 24 Hours 01/17/17 01/17/17 01/17/17 01/17/17 15:47 16:38 19:05 20:00 Temp 97.8 97.4 97.8 97.4 Pulse 98 105 Resp 20 19 B/P (MAP) 135/68 (90) 159/54 (89) Pulse Ox 95 91 O2 Delivery Nasal Cannula Room Air Nasal Cannula Nasal Cannula O2 Flow Rate 2.0 2.0 2.0 01/17/17 01/17/17 01/17/17 01/18/17 22:38 23:10 23:38 03:10 Temp 98.0 97.9 98.0 97.9 Pulse 102 96 Resp 22 18 18 B/P (MAP) 122/47 (72) 123/54 (77) Pulse Ox 91 93 91 93 O2 Delivery Room Air Room Air Room Air 01/18/17 01/18/17 01/18/17 01/18/17 05:05 06:05 07:55 08:00 Temp 98.0 98.0 Pulse 99 Resp 20 20 20 B/P (MAP) 151/77 (101) Pulse Ox 93 91 O2 Delivery Room Air Room Air Room Air Room Air O2 Flow Rate 2.0 01/18/17 01/18/17 01/18/17 01/18/17 10:51 11:20 13:08 13:09 Temp 97.7 97.7 Pulse 99 122 Resp 20 B/P (MAP) 112/68 (83) 112/68 Pulse Ox 92 93 O2 Delivery Room Air Room Air Room Air Intake and Output 01/18/17 01/18/17 01/19/17 15:00 23:00 07:00 Intake Total 660 ml Output Total 550 ml Balance 110 ml MECHELLE RUSSELL APRN Jan 18, 2017 14:05
[2017-01-18] MEDS ORDERED: BACLOFEN 10 MG TABLET. PO PRN (14:15)
[2017-01-18] MEDS ORDERED: BACLOFEN 10 MG TABLET. PO SCH (14:30)
--- NOTE | 2017-01-18 14:32 | PDOC ---
PROGRESS NOTES Subjective Subjective She continues with muscle spasms. Objective Objective Vital Signs Date Time Temp Pulse Resp B/P (MAP) Pulse Ox O2 Delivery O2 Flow Rate FiO2 01/18/17 13:09 122 112/68 01/18/17 13:08 Room Air 01/18/17 11:20 93 01/18/17 10:51 97.7 20 97.7 01/18/17 05:05 2.0 Intake and Output 01/19/17 07:00 Intake Total 660 ml Output Total 550 ml Balance 110 ml Intake Oral 660 ml Output Urine Total 550 ml # Voids 1 # Bowel Movements 1 Physical Exam Physical Exam She has been getting up and walking with roller walker. Plan Plan of Care To give baclofen routinely and to home with home health or SNF transfer when medically stable. Comment Review of Relevant I have reviewed the following items sophie (where applicable) has been applied. Labs Laboratory Tests Test 01/17/17 08:58 01/17/17 13:15 White Blood Count 9.3 x10^3/uL (4.0-11.0) Red Blood Count 3.86 x10^6/uL (3.50-5.40) Hemoglobin 12.0 g/dL (12.0-15.5) Hematocrit 34.7 % (36.0-47.0) Mean Corpuscular Volume 90 fL (79-100) Mean Corpuscular Hemoglobin 31 pg (25-35) Mean Corpuscular Hemoglobin Concent 35 g/dL (31-37) Red Cell Distribution Width 13.1 % (11.5-14.5) Platelet Count 235 x10^3/uL (140-400) Neutrophils (%) (Auto) 61 % (31-73) Lymphocytes (%) (Auto) 27 % (24-48) Monocytes (%) (Auto) 10 % (0-9) Eosinophils (%) (Auto) 1 % (0-3) Basophils (%) (Auto) 1 % (0-3) Neutrophils # (Auto) 5.7 x10^3uL (1.8-7.7) Lymphocytes # (Auto) 2.6 x10^3/uL (1.0-4.8) Monocytes # (Auto) 0.9 x10^3/uL (0.0-1.1) Eosinophils # (Auto) 0.1 x10^3/uL (0.0-0.7) Basophils # (Auto) 0.0 x10^3/uL (0.0-0.2) Sodium Level 141 mmol/L (136-145) Potassium Level 3.2 mmol/L (3.5-5.1) Chloride Level 101 mmol/L (98-107) Carbon Dioxide Level 34 mmol/L (21-32) Anion Gap 6 (6-14) Blood Urea Nitrogen 27 mg/dL (7-20) Creatinine 0.8 mg/dL (0.6-1.0) Estimated GFR (Cockcroft-Gault) 73.2 BUN/Creatinine Ratio 34 (6-20) Glucose Level 110 mg/dL (70-99) Calcium Level 8.9 mg/dL (8.5-10.1) Magnesium Level 2.0 mg/dL (1.8-2.4) Total Bilirubin 0.5 mg/dL (0.2-1.0) Aspartate Amino Transf (AST/SGOT) 28 U/L (15-37) Alanine Aminotransferase (ALT/SGPT) 39 U/L (14-59) Alkaline Phosphatase 71 U/L (46-116) Total Protein 6.7 g/dL (6.4-8.2) Albumin 3.7 g/dL (3.4-5.0) Albumin/Globulin Ratio 1.2 (1.0-1.7) Thyroid Stimulating Hormone (TSH) 5.780 uIU/mL (0.358-3.74) D-Dimer (Edith) 0.75 ug/mlFEU (0.00-0.50) Medications Current Medications Ondansetron HCl (Zofran) 4 mg PRN Q6HRS PRN IV NAUSEA/VOMITING; Start 01/15/17 at 07:00; Stop 01/16/17 at 06:59; Status DC Fentanyl Citrate (Fentanyl 2ml Vial) 25 mcg PRN Q5MIN PRN IV MILD PAIN Last administered on 01/15/17 13:57; Start 01/15/17 at 07:00; Stop 01/16/17 at 06: 59; Status DC Fentanyl Citrate (Fentanyl 2ml Vial) 50 mcg PRN Q5MIN PRN IV MODERATE PAIN Last administered on 01/15/17 12:27; Start 01/15/17 at 07:00; Stop 01/16/17 at 06:59; Status DC Morphine Sulfate 1 mg PRN Q10MIN PRN IV SEVERE PAIN; Start 01/15/17 at 07:00; Stop 01/16/17 at 06:59; Status DC Ringer's Solution 1,000 ml @ 30 mls/hr Q24H IV Last administered on 01/15/17 08:04; Start 01/15/17 at 07:00; Stop 01/15/17 at 18:59; Status DC Lidocaine HCl (Xylocaine-Mpf 1% Vial) 2 ml PRN 1X PRN ID PRIOR TO IV START; Start 01/15/17 at 07:00; Stop 01/16/17 at 06:59; Status DC Hydromorphone HCl (Dilaudid) 0.5 mg PRN Q10MIN PRN IV SEV PAIN, Second choice; Start 01/15/17 at 07:00; Stop 01/16/17 at 06:59; Status DC Prochlorperazine Edisylate (Compazine) 5 mg PACU PRN PRN IV NAUSEA, MRX1; Start 01/15/17 at 07:00; Stop 01/16/17 at 06:59; Status DC Vancomycin HCl 250 ml @ 250 mls/hr 1X PREOP PRN IV PRIOR TO SURGERY Last administered on 01/15/17 09:00; Start 01/15/17 at 08:00; Stop 01/18/17 at 09: 09; Status DC Bacitracin 54858 unit/Sodium Chloride 1,000 ml @ 1,000 mls/hr 1X PERIOP ONCE IRR Last administered on 01/15/17 09:46; Start 01/15/17 at 06:00; Stop at 06:59; Status DC Gelatin (Gelfoam Size 100) 1 each STK-MED ONCE .ROUTE Last administered on 09:46; Start 01/15/17 at 06:05; Stop 01/15/17 at 07:05; Status DC Ketorolac Tromethamine (Toradol For Or Only) 60 mg STK-MED ONCE .ROUTE Last administered on 01/15/17 09:46; Start 01/15/17 at 06:05; Stop 01/15/17 at 07:06 ; Status DC Thrombin 20,000 unit STK-MED ONCE TP Last administered on 01/15/17 09:46; Start 01/15/17 at 06:06; Stop 01/15/17 at 07:06; Status DC Bupivacaine HCl/ Epinephrine Bitart (Sensorcain-Mpf Epi 0.5%-1:[id number]) 10 ml STK -MED ONCE .ROUTE Last administered on 01/15/17 09:46; Start 01/15/17 at 07:18 ; Stop 01/15/17 at 07:19; Status DC Bupivacaine HCl/ Epinephrine Bitart (Sensorcain-Mpf Epi 0.5%-1:[id number]) 10 ml STK -MED ONCE .ROUTE Last administered on 01/15/17 09:46; Start 01/15/17 at 06:42 ; Stop 01/15/17 at 07:43; Status DC Propofol 20 ml @ As Directed STK-MED ONCE IV ; Start 01/15/17 at 08:12; Stop at 08:13; Status DC Lidocaine HCl (Lidocaine Pf 2% Vial) 5 ml STK-MED ONCE .ROUTE ; Start 01/15/17 at 08:12; Stop 01/15/17 at 08:13; Status DC Dexamethasone Sodium Phosphate (Decadron) 20 mg STK-MED ONCE .ROUTE ; Start 01/15/17 at 08:12; Stop 01/15/17 at 08:13; Status DC Ondansetron HCl (Zofran) 4 mg STK-MED ONCE .ROUTE ; Start 01/15/17 at 08:12; Stop 01/15/17 at 08:13; Status DC Fentanyl Citrate (Fentanyl 2ml Vial) 100 mcg STK-MED ONCE .ROUTE ; Start at 08:12; Stop 01/15/17 at 08:13; Status DC Remifentanil HCl (Ultiva) 2 mg STK-MED ONCE IV ; Start 01/15/17 at 08:13; Stop 01/15/17 at 08:14; Status DC Propofol 50 ml @ As Directed STK-MED ONCE IV ; Start 01/15/17 at 08:13; Stop at 08:14; Status DC Phenylephrine HCl 1 mg STK-MED ONCE IV ; Start 01/15/17 at 08:13; Stop 01/15/17 at 08:14; Status DC Ephedrine Sulfate 50 mg STK-MED ONCE IV ; Start 01/15/17 at 08:13; Stop at 08:14; Status DC Rocuronium Mason (Zemuron) 100 mg STK-MED ONCE .ROUTE ; Start 01/15/17 at 08: 20; Stop 01/15/17 at 08:21; Status DC Glycopyrrolate (Robinul) 1 mg STK-MED ONCE .ROUTE ; Start 01/15/17 at 09:30; Stop 01/15/17 at 09:31; Status DC Neostigmine Methylsulfate (Bloxiverz) 10 mg STK-MED ONCE .ROUTE ; Start at 09:30; Stop 01/15/17 at 09:31; Status DC Propofol 50 ml @ As Directed STK-MED ONCE IV ; Start 01/15/17 at 09:49; Stop at 09:50; Status DC Desflurane (Suprane) 90 ml STK-MED ONCE IH ; Start 01/15/17 at 10:40; Stop 01/15 at 10:41; Status DC Atorvastatin Calcium (Lipitor) 20 mg HS PO Last administered on 01/17/17 19: 51; Start 01/15/17 at 21:00 Vitamin D (Vitamin D3) 1,000 unit DAILY PO Last administered on 01/18/17 09: 34; Start 01/16/17 at 09:00 Cyclobenzaprine HCl (Flexeril) 10 mg TID PO Last administered on 01/16/17 08: 25; Start 01/15/17 at 21:00; Stop 01/16/17 at 10:00; Status DC Furosemide (Lasix) 40 mg DAILY PO Last administered on 01/18/17 09:34; Start 01/16/17 at 09:00 Acetaminophen/ Hydrocodone Bitart (Lortab 7.5/325) 1 tab PRN Q6HRS PRN PO PAIN Last administered on 01/17/17 09:19; Start 01/15/17 at 12:15 Diclofenac Sodium (Voltaren) 75 mg BID PO Last administered on 01/18/17 09:34 ; Start 01/15/17 at 21:00 Hydrochlorothiazide (Hydrodiuril) 25 mg DAILY PO Last administered on 09:17; Start 01/16/17 at 09:00; Stop 01/17/17 at 12:10; Status DC Acetaminophen (Tylenol) 650 mg PRN Q6HRS PRN PO MILD PAIN / TEMP; Start at 12:15 Al Hydroxide/Mg Hydroxide (Mylanta Plus Xs) 30 ml PRN Q3HRS PRN PO HEARTBURN / GAS; Start 01/15/17 at 12:15 Calcium Carbonate/ Glycine (Tums) 500 mg PRN Q3HRS PRN PO INDIGESTION; Start 01/15/17 at 12:15 Diphenhydramine HCl (Benadryl) 25 mg PRN Q6HRS PRN PO ITCHING; Start 01/15/17 at 12:15 Diphenhydramine HCl (Benadryl) 25 mg PRN Q6HRS PRN IV ITCHING; Start 01/15/17 at 12:15 Zolpidem Tartrate (Ambien) 5 mg PRN QHS PRN PO INSOMNIA, MAY REPEAT IN 1HR; Start 01/15/17 at 12:15 Sodium Chloride (Normal Saline Flush) 3 ml QSHIFT PRN IV AFTER MEDS AND BLOOD DRAWS; Start 01/15/17 at 12:15 Potassium Chloride/Dextrose/ Sod Cl 1,000 ml @ 75 mls/hr [id number] IV Last administered on 01/15/17 15:16; Start 01/15/17 at 14:00; Stop 01/16/17 at 07: 09; Status DC Methocarbamol (Robaxin) 750 mg TID PO ; Start 01/15/17 at 14:00; Status UNV Docusate Sodium (Colace) 100 mg BID PO Last administered on 01/18/17 09:34; Start 01/15/17 at 21:00 Magnesium Hydroxide (Milk Of Magnesia) 2,400 mg PRN Q12HR PRN PO CONSTIPATION; Start 01/15/17 at 12:15 Acetaminophen/ Hydrocodone Bitart (Lortab 7.5/325) 2 tab PRN Q6HRS PRN PO PAIN Last administered on 01/18/17 13:08; Start 01/15/17 at 12:15 Acetaminophen/ Hydrocodone Bitart (Lortab 7.5/325) 1 tab PRN Q6HRS PRN PO PAIN Last administered on 01/15/17 21:52; Start 01/15/17 at 12:15; Stop 01/17/17 at 10:04; Status DC Fentanyl Citrate (Fentanyl 2ml Vial) 50 mcg PRN Q2HR PRN IV PAIN Last administered on 01/16/17 01:54; Start 01/15/17 at 12:15 Fentanyl Citrate (Fentanyl 2ml Vial) 25 mcg PRN Q2HR PRN IV PAIN; Start at 12:15 Albumin Human 250 ml @ As Directed STK-MED ONCE IV ; Start 01/15/17 at 12:38; Stop 01/15/17 at 12:39; Status DC Albumin Human 500 ml @ 125 mls/hr 1X ONCE IV Last administered on 01/15/17 12:56; Start 01/15/17 at 12:45; Stop 01/15/17 at 16:44; Status DC Methocarbamol (Robaxin) 750 mg PRN TID PRN PO MUSCLE SPASMS Last administered on 01/18/17 04:08; Start 01/16/17 at 10:00; Stop 01/18/17 at 14:13; Status DC Albuterol Sulfate (Ventolin Neb Soln) 2.5 mg PRN Q4HRS PRN NEB SHORTNESS OF BREATH; Start 01/16/17 at 10:45 Furosemide (Lasix) 20 mg 1X ONCE IVP Last administered on 01/16/17 13:13; Start 01/16/17 at 11:30; Stop 01/16/17 at 11:31; Status DC Potassium Chloride (Klor-Con) 40 meq 1X ONCE PO Last administered on 12:10; Start 01/17/17 at 10:30; Stop 01/17/17 at 10:31; Status DC Iohexol (Omnipaque 300 Mg/ml) 75 ml 1X ONCE IV Last administered on 12:32; Start 01/17/17 at 12:30; Stop 01/17/17 at 12:31; Status DC Info (Do NOT chart on this entry -- for MONITORING) 1 each PRN DAILY PRN MC SEE COMMENTS; Start 01/17/17 at 12:30; Stop 01/19/17 at 12:29 Albuterol/ Ipratropium (Duoneb) 3 ml RTQID NEB Last administered on 01/18/17 11:19; Start 01/18/17 at 12:00 Budesonide (Pulmicort) 0.5 mg RTBID NEB Last administered on 01/18/17 11:19; Start 01/18/17 at 10:00 Metoprolol Succinate (Toprol Xl) 25 mg DAILY PO Last administered on 13:09; Start 01/18/17 at 13:00 Baclofen (Lioresal) 10 mg PRN Q6HRS PRN PO MUSCLE SPASMS; Start 01/18/17 at 14 :15 Active Scripts Active Lasix (Furosemide) 40 Mg Tablet 1 Tab PO DAILY Reported Vitamin D3 (Cholecalciferol (Vitamin D3)) 1,000 Unit Tablet 1 Tab PO DAILY Hydrocodone-Apap 7.5-325 (Hydrocodone Bit/Acetaminophen) 1 Each Tablet 1 Tab PO PRN Q6HRS PRN Diclofenac Sodium 75 Mg Tablet.dr 1 Tab PO BID Atorvastatin Calcium 20 Mg Tablet 20 Mg PO HS Cyclobenzaprine Hcl 10 Mg Tablet 1 Tab PO TID Hydrochlorothiazide Tablet (Hydrochlorothiazide) 12.5 Mg Tablet 1 Tab PO DAILY Vitals/I & O Vital Sign - Last 24 Hours 01/17/17 01/17/17 01/17/17 01/17/17 15:47 16:38 19:05 20:00 Temp 97.8 97.4 97.8 97.4 Pulse 98 105 Resp 20 19 B/P (MAP) 135/68 (90) 159/54 (89) Pulse Ox 95 91 O2 Delivery Nasal Cannula Room Air Nasal Cannula Nasal Cannula O2 Flow Rate 2.0 2.0 2.0 01/17/17 01/17/17 01/17/17 01/18/17 22:38 23:10 23:38 03:10 Temp 98.0 97.9 98.0 97.9 Pulse 102 96 Resp 22 18 18 B/P (MAP) 122/47 (72) 123/54 (77) Pulse Ox 91 93 91 93 O2 Delivery Room Air Room Air Room Air 01/18/17 01/18/17 01/18/17 01/18/17 05:05 06:05 07:55 08:00 Temp 98.0 98.0 Pulse 99 Resp 20 20 20 B/P (MAP) 151/77 (101) Pulse Ox 93 91 O2 Delivery Room Air Room Air Room Air Room Air O2 Flow Rate 2.0 01/18/17 01/18/17 01/18/17 01/18/17 10:51 11:20 13:08 13:09 Temp 97.7 97.7 Pulse 99 122 Resp 20 B/P (MAP) 112/68 (83) 112/68 Pulse Ox 92 93 O2 Delivery Room Air Room Air Room Air Intake and Output 01/18/17 01/18/17 01/19/17 15:00 23:00 07:00 Intake Total 660 ml Output Total 550 ml Balance 110 ml KATYA CHRISTIANSEN MD Jan 18, 2017 14:32
--- NOTE | 2017-01-18 14:41 | DISCH ---
DISCHARGE INSTRUCTIONS Condition on Discharge Condition on Discharge: Stable Activity After Discharge Activity Instructions for Disc: Resume previous activity, Activity as tolerated Bathing Instructions: Shower-keep dressing dry Lifting Instructions after Dis: No heavy lifting, No pulling or pushing, Do not lift >10 pounds Driving Instructions after Dis: Do not drive Diet after Discharge Additional Diet Restrictions: continue current diet Wound Incision Care Wound/Incision Care: Ice to area for comfort Other wound/incision instructi: daily dressing change, with 4X4 and medipore Contacting the DRKassandra after DC Call your doctor for: Concerns you may have Follow-Up Follow up with: Dr. Peoples in 2 weeks [phone] MECHELLE RUSSELL APRN Jan 18, 2017 14:41
--- NOTE | 2017-01-18 14:44 | PDOC ---
PULMONARY PROGRESS NOTES Vitals Vital Signs Date Time Temp Pulse Resp B/P (MAP) Pulse Ox O2 Delivery O2 Flow Rate FiO2 01/18/17 13:09 122 112/68 01/18/17 13:08 Room Air 01/18/17 11:20 93 01/18/17 10:51 97.7 20 97.7 01/18/17 05:05 2.0 Labs Laboratory Tests Test 01/17/17 08:58 01/17/17 13:15 White Blood Count 9.3 x10^3/uL (4.0-11.0) Red Blood Count 3.86 x10^6/uL (3.50-5.40) Hemoglobin 12.0 g/dL (12.0-15.5) Hematocrit 34.7 % (36.0-47.0) Mean Corpuscular Volume 90 fL (79-100) Mean Corpuscular Hemoglobin 31 pg (25-35) Mean Corpuscular Hemoglobin Concent 35 g/dL (31-37) Red Cell Distribution Width 13.1 % (11.5-14.5) Platelet Count 235 x10^3/uL (140-400) Neutrophils (%) (Auto) 61 % (31-73) Lymphocytes (%) (Auto) 27 % (24-48) Monocytes (%) (Auto) 10 % (0-9) Eosinophils (%) (Auto) 1 % (0-3) Basophils (%) (Auto) 1 % (0-3) Neutrophils # (Auto) 5.7 x10^3uL (1.8-7.7) Lymphocytes # (Auto) 2.6 x10^3/uL (1.0-4.8) Monocytes # (Auto) 0.9 x10^3/uL (0.0-1.1) Eosinophils # (Auto) 0.1 x10^3/uL (0.0-0.7) Basophils # (Auto) 0.0 x10^3/uL (0.0-0.2) Sodium Level 141 mmol/L (136-145) Potassium Level 3.2 mmol/L (3.5-5.1) Chloride Level 101 mmol/L (98-107) Carbon Dioxide Level 34 mmol/L (21-32) Anion Gap 6 (6-14) Blood Urea Nitrogen 27 mg/dL (7-20) Creatinine 0.8 mg/dL (0.6-1.0) Estimated GFR (Cockcroft-Gault) 73.2 BUN/Creatinine Ratio 34 (6-20) Glucose Level 110 mg/dL (70-99) Calcium Level 8.9 mg/dL (8.5-10.1) Magnesium Level 2.0 mg/dL (1.8-2.4) Total Bilirubin 0.5 mg/dL (0.2-1.0) Aspartate Amino Transf (AST/SGOT) 28 U/L (15-37) Alanine Aminotransferase (ALT/SGPT) 39 U/L (14-59) Alkaline Phosphatase 71 U/L (46-116) Total Protein 6.7 g/dL (6.4-8.2) Albumin 3.7 g/dL (3.4-5.0) Albumin/Globulin Ratio 1.2 (1.0-1.7) Thyroid Stimulating Hormone (TSH) 5.780 uIU/mL (0.358-3.74) D-Dimer (Edith) 0.75 ug/mlFEU (0.00-0.50) Medications Active Scripts Medications Dose Route/Sig Max Daily Dose Days Date Category Vitamin D3 (Cholecalciferol (Vitamin D3)) 1,000 Unit Tablet 1 Tab PO DAILY 01/05/17 Reported Lasix (Furosemide) 40 Mg Tablet 1 Tab PO DAILY 12/21/16 Rx Hydrocodone-Apap 7.5-325 (Hydrocodone Bit/Acetaminophen) 1 Each Tablet 1 Tab PO PRN Q6HRS PRN 12/21/16 Reported Diclofenac Sodium 75 Mg Tablet.dr 1 Tab PO BID 12/21/16 Reported Atorvastatin Calcium 20 Mg Tablet 20 Mg PO HS 12/21/16 Reported Cyclobenzaprine Hcl 10 Mg Tablet 1 Tab PO TID 10/25/16 Reported Hydrochlorothiazide Tablet (Hydrochlorothiazide) 12.5 Mg Tablet 1 Tab PO DAILY 10/04/16 Reported Impression . FULL CONSULT DICTATED ACUTE RESP FAILURE SEC TO ACUTE DIASTOLIC HF EZEQUIEL POSSIBLE SEC PUL HTN AECOPD OK TO TRANSFER DIURESE FOLLOW UP IN OFFICE OUPT SLEEP STUDY 6 MIN WALK PRIOR TO D/C CITLALLI HAWK MD Jan 18, 2017 14:44
--- NOTE | 2017-01-18 18:17 | CONS ---
DATE OF CONSULTATION: 01/18/2017 ATTENDING PHYSICIAN: Dr. Jasso. REASON FOR CONSULTATION: The patient seen in pulmonary consultation at the request of Dr. Jasso for increasing shortness of air. HISTORY OF PRESENT ILLNESS: The patient is a 61-year-old female with chronic pain. She underwent a lumbar laminectomy, had some increasing shortness of breath. I was consulted. The patient has a history of COPD and quit tobacco 2 years ago. She claims that she does not experience acute exacerbations of COPD on a regular basis, does not recall the last time she was treated for pneumonia. Her workup included a D-dimer, which was positive. She subsequently underwent a CT angiogram for PE protocol. I reviewed the CT angiogram. There was no evidence of pulmonary emboli. There was some atelectasis in the bases and some interstitial edema along with emphysema. The patient is normally not on oxygen at home. I queried her about obstructive sleep apnea. She does snore. She does not know if there is any apnea spell. She awakens in the morning unrefreshed from her sleep. PAST MEDICAL HISTORY: 1. COPD, tobacco dependence in remission. 2. Chronic pain, status post recent lumbar laminectomy. 3. Hyperlipidemia. 4. Osteoarthritis. 5. Hypertension. 6. Atrial fibrillation. PAST SURGICAL HISTORY: Total abdominal hysterectomy, oophorectomy, tonsillectomy, appendectomy and hernia repair. SOCIAL HISTORY: She quit tobacco 2 years ago. Denies any alcohol intake. She is . No significant occupational or avocational exposures. MEDICATIONS: List was reviewed. Please see the MRAD. FAMILY HISTORY: Remarkable for father dying with oral cancer, brother with arthritis. Mother had from complications of severe arthritis. ALLERGIES: LISTED TO PENICILLIN. REVIEW OF SYSTEMS: As indicated above, otherwise, a 10-point system was reviewed and negative. PHYSICAL EXAMINATION: GENERAL: The patient was in no respiratory distress. VITAL SIGNS: Currently on room air with saturation 91-93%. HEENT: Eyes: The sclerae were nonicteric. NECK: Jugular venous distention was not elevated. No lymphadenopathy. CHEST: Full expansion. LUNGS: Slight crackles in the bases, otherwise no wheezes. CARDIOVASCULAR: Regular rate and rhythm with S1, S2, no S3. ABDOMEN: Soft, nontender, nondistended. EXTREMITIES: No clubbing, cyanosis. Marked edema. NEUROLOGIC: The patient was awake, alert, following commands. A detailed neuro exam was not performed. LABORATORY DATA: Reviewed as indicated above. White count was normal. Electrolytes were noted. BUN and creatinine were noted. CT chest as indicated above. IMPRESSION: 1. Progressive dyspnea secondary to underlying chronic obstructive pulmonary disease, recent surgery and chronic pain. 2. Acute exacerbation of chronic obstructive pulmonary disease secondary to interstitial edema. 3. Abnormal CT of the chest revealing acute diastolic heart failure. 4. Possible obstructive sleep apnea. 5. Obesity. 6. Status post laminectomy. 7. Tobacco dependence, in remission. PLAN: 1. Recommend continue to diurese. 2. Nebulized treatments. 3. Outpatient polysomnogram. 4. The patient is to transfer to custodial unit. I will see her in the outpatient department and order an outpatient polysomnogram. In addition, she requires a 6-minute walk prior to discharge. Dr. Jasso, I do appreciate the privilege in sharing the patient's care. CITLALLI HAWK MD DR: KEVAN/jennifer JOB#: [id number] / [id number]
--- NOTE | 2017-01-19 09:25 | DS ---
DATE OF DISCHARGE: 01/18/2017 DATE OF SURGERY: 01/15/2017 DISCHARGE DIAGNOSES: Lumbar spinal stenosis L2-L3, L3-L4 with left lumbar radiculopathy. OPERATION PERFORMED: Left direct laminectomy L2-L3, L3-L4. HISTORY OF PRESENT ILLNESS: The patient is a pleasant 61-year-old woman, who developed intractable back and left leg pain, which failed to improve with conservative measures. Her pain was severe. On imaging studies, she was found to have the above-mentioned findings and I recommended lumbar microsurgery. I spoke with her about the surgery and the risk as well as the expected postoperative course. She understood and wished to go ahead. HOSPITAL COURSE: She was admitted to the floor postoperatively. She was seen by cardiology for tachycardia as well as physiatry and her primary care physician, Dr. Jasso. She is currently not having any chest pain. She is in ____. She is no longer on oxygen. Her congestive heart failure is compensated. She is now medically stable to transfer to residential facility. Her pain is well controlled. DISCHARGE MEDICATIONS: She will resume her medications per the MRAD. DISCHARGE INSTRUCTIONS: She was instructed regarding incision care, activity restrictions and expectations for the next several weeks. She will follow up with us in 2 weeks. She will follow up also with her primary care physician, Dr. Jasso. She understands to call us with any questions or concerns. CARMITA HERNANDEZ MD DR: ALICIA/jennifer JOB#: [id number] / [id number]
== END 2017-01-18 16:00 | DRG 515 ==
LOC: SURG 07:20 → 4 SOUTHEST 12:02 → 2 NORTH 01-16 13:45 → OBSVTOIN 01-17 12:52
PROVIDERS: ADMIT Neurological Surgery; ATTEND Neurological Surgery
PROC: 4A11X4G Monitoring of Peripheral Nervous Electrical Activity, Intraoperative, External Approach (ICD-10-PCS; 2017-01-15)
PROC: 01NB0ZZ Release Lumbar Nerve, Open Approach (ICD-10-PCS; principal; 2017-01-15 08:30)
DX: M48.061 Spinal stenosis, lumbar region without neurogenic claudication (principal); J96.01 Acute respiratory failure with hypoxia; I50.31 Acute diastolic (congestive) heart failure; J98.11 Atelectasis; J44.1 Chronic obstructive pulmonary disease with (acute) exacerbation; I47.1 Supraventricular tachycardia; M17.12 Unilateral primary osteoarthritis, left knee; I87.2 Venous insufficiency (chronic) (peripheral); I48.91 Unspecified atrial fibrillation; I27.20 Pulmonary hypertension, unspecified; I11.0 Hypertensive heart disease with heart failure; G89.29 Other chronic pain; G47.33 Obstructive sleep apnea (adult) (pediatric); F17.201 Nicotine dependence, unspecified, in remission; E78.5 Hyperlipidemia, unspecified; E78.00 Pure hypercholesterolemia, unspecified; E66.9 Obesity, unspecified; E03.9 Hypothyroidism, unspecified; M54.16 Radiculopathy, lumbar region; Z80.8 Family history of malignant neoplasm of other organs or systems; Z82.49 Family history of ischemic heart disease and other diseases of the circulatory system; Z88.0 Allergy status to penicillin; Z82.61 Family history of arthritis; Z90.49 Acquired absence of other specified parts of digestive tract; Z90.710 Acquired absence of both cervix and uterus; Z91.040 Latex allergy status; Z68.32 Body mass index [BMI] 32.0-32.9, adult
CPT/HCPCS: 36415; 71010; 71275; 73521; 73565; 76000; 80048; 80053; 83735; 83880; 84443; 85025; 85379; 88304; 88311; 93005; 93306; 93970; 94250; 94620; 94640; 94760; G0378; G0379; J1100; J1885; J2370; J2405; J2704; J2710; J3010; J3490; J7030; J7120; J7620; J7626; P9041; P9045; Q9967; 97110; 97116; 97535; J2001

== ENCOUNTER → 2017-03-14 | Outpatient (CLI) | payer BC ==
[~2017-03-14] MED LIST changes: -BACITRACIN 50,000 UNIT in IV NORMAL SALINE 1000ML BAG 1,000 ML IRR ONE; -BUPIVAC MPF-EPI 0.5%-1:200000 10 ML VIAL. ONE; -GELATIN SPONGE SIZE 100. ONE; -HYDROmorphone 2 MG/ML VIAL IV PRN; -IV RINGERS,LACTATED 1000ML 1,000 ML IV SCH; -KETOROLAC 60 MG/2 ML INJ FOR OR. ONE; -LIDOCAINE 1% PF 2 ML VIAL. ID PRN; -MORPHINE SULFATE 2 MG/ML DISP.SYRIN. IV PRN; -ONDANSETRON PF 4 MG/2 ML VIAL. IV PRN; -PROCHLORPERAZINE 10 MG/2 ML VIAL. IV PRN; -THROMBIN TOPICAL 20,000 UNIT SPRAY.SYRN KIT TP ONE; -fentaNYL PF VIAL 100 MCG/2 ML VIAL IV PRN
--- NOTE | 2017-03-14 12:49 | RAD ---
Lumbar spine, 2 views, 03/14/2017: History: Postop back pain Comparison is made to a study from 07/12/2011. L5 is not well-visualized on the lateral view due to obliquity of patient positioning. No fracture or dislocation is identified. There is mild disc space narrowing and moderate marginal spurring at multiple levels. There are extensive degenerative changes involving the facet joints bilaterally in the lower lumbar spine. Aortic calcific plaquing is present. A wire-like foreign body projected over the right side of the pelvis most likely lies on the surface of the patient, perhaps part of a belt buckle. IMPRESSION: 1. Degenerative changes including extensive facet joint arthropathy in the lower lumbar spine. 2. No acute bony abnormality is detected.
== END | disposition home or self-care (01) ==
LOC: RAD 11:51
PROVIDERS: ATTEND Neurological Surgery
DX: M12.88 Other specific arthropathies, not elsewhere classified, other specified site (principal); M47.896 Other spondylosis, lumbar region; G89.18 Other acute postprocedural pain; Z98.890 Other specified postprocedural states
CPT/HCPCS: 72100